=== PATIENT | female | born 1955 | race Caucasian/White ===

== ENCOUNTER 2016-11-16 05:36 | Inpatient (IN) | payer OTHER ==
[~2016-11-16] VITALS: Ht 172.7 cm; Wt 50.3 kg
[~2016-11-16 05:36] MED LIST: [UNRECOGNIZED DRUG - REMARK] PO
[2016-11-16] MEDS ORDERED: OXYCODONE/APAP 5-325 MG TABLET PO ONE (05:45)
[2016-11-16] MEDS ORDERED: TDAP DIPH,PERTUSS,TET VAC/PF 0.5 ML DISP.SYRIN IM ONE ×2 (05:45→05:59)
[2016-11-16] MEDS ORDERED: OXYCODONE/APAP 5-325 MG TABLET ONE (05:59)
[2016-11-16 07:13] LABS: BASOPHILS # (AUTO) 0.1 K/uL (0.0-8.0); BASOPHILS % (AUTO) 0.7 % (0.0-2.0); EOSINOPHILS % (AUTO) 0.2 % (0.0-7.0); HEMATOCRIT 41.8 % (37-47); HEMOGLOBIN 13.7 G/DL (12.0-16.0); LYMPHOCYTES # (AUTO) 1.1 K/UL (0.8-4.8); LYMPHOCYTES % (AUTO) 13.8 % (20.5-51.5); MEAN CORPUSCULAR HEMOGLOBIN 31.3 UUG (27.0-31.0); MEAN CORPUSCULAR HGB CONC 33 g/dL (32.0-37.0); MEAN CORPUSCULAR VOLUME 95.5 FL (81.0-99.0); MONOCYTES # (AUTO) 1.3 K/UL (0.1-1.30); MONOCYTES % (AUTO) 16.9 % (0.0-11.0); NEUTROPHILS # (AUTO) 5.3 K/UL (1.8-8.9); NEUTROPHILS % (AUTO) 68.4 % (38.5-71.5); PLATELET COUNT (AUTO) 105 K/UL (150-450); RED BLOOD CELL COUNT(AUTO) 4.38 MIL/UL (4.2-5.4); WHITE BLOOD COUNT (AUTO) 7.8 K/UL (4.0-11.2)
[2016-11-16 07:39] LABS: BILIRUBIN,TOTAL 2.2 mg/dL (0.2-1.0); CREATININE 0.7 mg/dL (0.6-1.3); POTASSIUM 3.9 mmol/L (3.5-5.1); TOTAL PROTEIN, SERUM 6.8 g/dL (6.4-8.2)
[2016-11-16 08:23] LABS: BAND % (MANUAL) 8 % (0-10); LYMPHOCYTES % (MANUAL) 9 % (20-40); MONOCYTES % (MANUAL) 14 % (2-10); NEUTROPHILS % (MANUAL) 69 % (42-75)
[2016-11-16] MEDS ORDERED: ACETAMINOPHEN 325 MG TABLET PO PRN (09:15)
[2016-11-16] MEDS ORDERED: ZOLPIDEM 5 MG TABLET PO PRN (09:15)
[2016-11-16] MEDS ORDERED: Z GUARD REMEDY PASTE 57 GM TUBE TOP PRN (09:15)
[2016-11-16] MEDS ORDERED: ONDANSETRON 4 MG/2 ML VIAL IV PRN (09:15)
[2016-11-16] MEDS ORDERED: HYDROCODONE/APAP 5-325MG TABLET PO PRN (09:15)
[2016-11-16] MEDS ORDERED: MORPHINE SULFATE 2 MG/1 ML DISP.SYRIN IV PRN (09:15)
[2016-11-16] MEDS ORDERED: MAGNESIUM HYDROXIDE 30 ML LIQUID UDC PO PRN (09:15)
[2016-11-16] MEDS: ENOXAPARIN SODIUM 40 MG/0.4 ML DISP.SYRIN SQ SCH (09:29)
[2016-11-16 09:38] VITALS: BP 124/90
[2016-11-16 11:04] VITALS: BP 115/84
[2016-11-16 15:06] VITALS: BP 122/86
[2016-11-16] MEDS: HYDROCODONE/APAP 10-325 MG TABLET PO PRN (20:08)
[2016-11-16 20:23] VITALS: BP 129/91
[2016-11-17 04:00] VITALS: BP 133/94
[2016-11-17] MEDS: PANTOPRAZOLE SODIUM 40 MG TABLET.DR PO SCH (06:03)
[2016-11-17 07:09] LABS: THYROID STIMULATING HORMONE 8.911 mIU/mL (0.358-3.740)
[2016-11-17 07:16] LABS: CREATININE 0.6 mg/dL (0.6-1.3); MAGNESIUM 1.6 mg/dL (1.8-2.4); PHOSPHOROUS 2.6 mg/dL (2.5-4.9); POTASSIUM 4.3 mmol/L (3.5-5.1)
[2016-11-17 07:18] LABS: *BLOOD, URINE 3+ (NEGATIVE); *CLARITY,URINE CLOUDY (CLEAR); *COLOR,URINE Orange (YELLOW); *KETONES,URINE 1+ (NEGATIVE); *PROTEIN,URINE 1+ (NEGATIVE); *UROBILINOGEN,URINE >=8.0 E.U./dl (NORMAL); LEUKOCYTE ESTERASE ,URINE 1+ (NEGATIVE); NITRITE, URINE NEGATIVE (NEGATIVE); PH,URINE 5.5 (5.0-8.0); UGLUCOSE NEGATIVE (NEGATIVE)
[2016-11-17 07:22] LABS: *BILIRUBIN,URIN 2+ (NEGATIVE)
[2016-11-17 07:28] LABS: BACTERIA,URINE FEW /HPF (NONE SEEN); RBC,URINE TNTC /HPF (0-3); SQUAMOUS EPITHELIAL CELL,UR MODERATE /HPF (NONE SEEN)
[2016-11-17 07:29] LABS: MUCUS,URINE MODERATE /LPF (0-FEW); WBC,URINE 50-80 /HPF (0-3)
[2016-11-17] MEDS ORDERED: POLYMYXIN B SULFATE 500,000 UNITS, BACITRACIN 50,000 UNITS, NORMAL SALINE 20 ML MC ONE ×3 (07:30)
[2016-11-17 07:37] LABS: EOSINOPHILS # (AUTO) 0.1 K/uL (0.0-0.7); EOSINOPHILS % (AUTO) 1.4 % (0.0-7.0); HEMATOCRIT 38.4 % (37-47); HEMOGLOBIN 12.6 G/DL (12.0-16.0); LYMPHOCYTES # (AUTO) 1.4 K/UL (0.8-4.8); LYMPHOCYTES % (AUTO) 19.4 % (20.5-51.5); MEAN CORPUSCULAR HEMOGLOBIN 31.4 UUG (27.0-31.0); MEAN CORPUSCULAR HGB CONC 33 g/dL (32.0-37.0); MEAN CORPUSCULAR VOLUME 95.6 FL (81.0-99.0); MONOCYTES % (AUTO) 13.7 % (0.0-11.0); NEUTROPHILS # (AUTO) 4.8 K/UL (1.8-8.9); NEUTROPHILS % (AUTO) 65.5 % (38.5-71.5); PLATELET COUNT (AUTO) 85 K/UL (150-450); RED BLOOD CELL COUNT(AUTO) 4.02 MIL/UL (4.2-5.4); WHITE BLOOD COUNT (AUTO) 7.3 K/UL (4.0-11.2)
[2016-11-17] MEDS ORDERED: BUPIVACAINE/EPI PF 0.25% 30 ML VIAL ONE (07:38)
[2016-11-17] MEDS ORDERED: BUPIVACAINE 0.25% 30 ML VIAL ONE (07:38)
[2016-11-17] MEDS ORDERED: IV LACTATED RINGERS SOLUTION 1,000 ML BAG IV ONE (07:48)
[2016-11-17] MEDS ORDERED: CEFAZOLIN 1 G VIAL MC ONE (07:48)
[2016-11-17] MEDS ORDERED: PROPOFOL 200 MG/20 ML BOTTLE IV ONE (07:48)
[2016-11-17] MEDS ORDERED: DEXAMETHASONE SOD PHOSPHATE 4 MG INJ IV ONE (07:48)
[2016-11-17] MEDS ORDERED: ONDANSETRON 4 MG/2 ML VIAL IV ONE (07:48)
[2016-11-17] MEDS ORDERED: LIDOCAINE-MPF 2% 5 ML VIAL MC ONE (07:48)
[2016-11-17] MEDS ORDERED: KETOROLAC TROMETHAMINE 30 MG INJ IM ONE (07:48)
[2016-11-17] MEDS ORDERED: DESFLURANE ANESTHESIA GAS 240 ML BOTTLE ONE ×2 (08:26)
[2016-11-17] MEDS: ENOXAPARIN SODIUM 40 MG/0.4 ML DISP.SYRIN SQ SCH (08:38)
[2016-11-17 08:47] LABS: BAND % (MANUAL) 6 % (0-10); EOSINOPHILS % (MANUAL) 2 % (0-8); LYMPHOCYTES % (MANUAL) 24 % (20-40); MONOCYTES % (MANUAL) 8 % (2-10); NEUTROPHILS % (MANUAL) 60 % (42-75)
[2016-11-17] MEDS ORDERED: ENOXAPARIN SODIUM 40 MG/0.4 ML DISP.SYRIN SQ SCH (09:00)
[2016-11-17] MEDS ORDERED: POTASSIUM CHLORIDE 20 MEQ in IV D5 1/2 NS 1000 ML 1,000 ML IV PRN (09:30)
[2016-11-17] MEDS ORDERED: CEFAZOLIN 50 ML IV ONE (09:35)
[2016-11-17] MEDS ORDERED: IV D5W-0.45% NS +20 KCL 1,000 ML IV ONE (10:01)
[2016-11-17 10:18] VITALS: BP 118/78
[2016-11-17] MEDS: MAGNESIUM SULFATE/D5W 100 ML IV SCH ×2 (10:25→11:25)
[2016-11-17 10:30] VITALS: BP 119/76
[2016-11-17 11:10] VITALS: BP 117/80
[2016-11-17] MEDS: CEFTRIAXONE 1 G in IV DEXTROSE 5% 50 ML IV SCH (13:52)
[2016-11-17 15:05] VITALS: BP 96/46
[2016-11-17 20:00] VITALS: BP 113/70
[2016-11-17] MEDS: HYDROCODONE/APAP 10-325 MG TABLET PO PRN (20:57)
[2016-11-18 05:00] VITALS: BP 121/80
[2016-11-18] MEDS: PANTOPRAZOLE SODIUM 40 MG TABLET.DR PO SCH (06:29)
[2016-11-18 06:42] LABS: CREATININE 0.6 mg/dL (0.6-1.3); MAGNESIUM 2.1 mg/dL (1.8-2.4); POTASSIUM 3.7 mmol/L (3.5-5.1)
[2016-11-18 12:07] VITALS: BP 127/93
[2016-11-18] MEDS ORDERED: HYDR-548 PO ×2 (14:20→20:27)
[2016-11-18] MEDS ORDERED: HYDR-3326 PO ×2 (14:20→20:27)
[2016-11-18] MEDS ORDERED: CEFT1PIG2 IV ×2 (14:20→20:27)
[2016-11-18] MEDS ORDERED: ACET325T53 PO (14:20)
[2016-11-18] MEDS: CEFTRIAXONE 1 G in IV DEXTROSE 5% 50 ML IV SCH (15:00)
[2016-11-18] MEDS ORDERED: ACET-2154 PO (20:27)
== END 2016-11-18 16:35 | DRG 504 ==
LOC: ER 05:38 → MED 07:55
PROC: 0QSL04Z Reposition Right Tarsal with Internal Fixation Device, Open Approach (ICD-10-PCS; principal; 2016-11-17 08:00)
DX: S92.001A Unspecified fracture of right calcaneus, initial encounter for closed fracture (principal); N39.0 Urinary tract infection, site not specified; W01.0XXA Fall on same level from slipping, tripping and stumbling without subsequent striking against object, initial encounter; Y93.01 Activity, walking, marching and hiking; Y92.89 Other specified places as the place of occurrence of the external cause; F17.210 Nicotine dependence, cigarettes, uncomplicated; B96.20 Unspecified Escherichia coli [E. coli] as the cause of diseases classified elsewhere; Z99.3 Dependence on wheelchair; I10 Essential (primary) hypertension; D69.6 Thrombocytopenia, unspecified; Z87.81 Personal history of (healed) traumatic fracture
CPT/HCPCS: 36415; 71010; 73590; 73630; 73650; 76000; 83735; 84100; 84443; 85025; 85610; 87077; 87086; 90715; 93005; 93307; 97001; 97530; A4663; C1713; J0690; J0696; J1100; J1650; J1885; J2405; J3475; J3480; J3490; J7060; J7120

== ENCOUNTER 2016-11-18 14:52 | Inpatient (IN) | payer OTHER ==
[~2016-11-18] VITALS: Ht 172.7 cm; Wt 62.6 kg
[~2016-11-18 14:52] MED LIST changes: +ACET325T53 PO; +CEFT1PIG2 IV; +HYDR-3326 PO; +HYDR-548 PO
[2016-11-18 19:32] VITALS: BP 111/76
[2016-11-18] MEDS ORDERED: HYDROCODONE/APAP 10-325 MG TABLET PO PRN (19:45)
[2016-11-18] MEDS ORDERED: HYDR-548 PO (20:27)
[2016-11-18] MEDS ORDERED: CEFT1PIG2 IV (20:27)
[2016-11-18] MEDS ORDERED: HYDR-3326 PO (20:27)
[2016-11-18] MEDS ORDERED: ACET-2154 PO (20:27)
[2016-11-18] MEDS ORDERED: ACETAMINOPHEN 325 MG TABLET PO PRN (20:45)
--- NOTE | 2016-11-18 21:08 | NUR ---
pt admitted at 1630 from second floor [facility]. report received from gwendolyn ROGERS. pt was brought in with the use of wheelchair. vital signs within normal limits. pt reported having bleeding on right foot but report said dont open it until Dr. Jimenez opens the dressing. pt reports having pain 9/10. pt states that she needs commode and assistance when moving. pt oriented to the room. loc x3 patient alert and oriented. obeys commands. will continue to monitor for complications and continue with medications ordered by dr Banks.
[2016-11-18] MEDS: CEFTRIAXONE 1 G in IV DEXTROSE 5% 50 ML IV SCH (21:51)
--- NOTE | 2016-11-19 06:11 | NUR ---
Patient alert and oriented and verbally able to let needs known. Did complain of pain on surgery site, medication was administered with relief. Patient slept well throughout the night, call light within reach, all needs attended to.
--- NOTE | 2016-11-19 07:07 | NUR ---
Patient received from shift production supervisor, resting comfortably in bed. No signs of acute distress noted, respirations even and unlabored on RA. Skin clean, dry, and intact. No verbalized needs noted at this time. Patient to go to therapy with OT. All safety precautions maintained. Transferred to gym safely with OT via wheelchair.
[2016-11-19 08:00] VITALS: BP 125/87
[2016-11-19] MEDS: HYDROCODONE/APAP 5-325MG TABLET PO PRN ×2 (13:02→21:28)
--- NOTE | 2016-11-19 16:03 | NUR ---
Senior Infrastructure Architect: SW met with patient at bedside to assess needs and provide support. Pt was admitted due to RT calcaneus Fx, and reported she was transferred from med/surg. Per pt, today was her first day of physical therapy and reported she did "horribly." She appeared fatigued during interview, however was pleasant and cooperative. Per pt, she has had a long hx of surgeries in the past, and reported that her "good ankle" is the reason for admission into acute rehab. Per pt, she has had issues with her left ankle in the past which caused her to fall 4 years ago, and has used a wheelchair since. Pt stated "I did horribly today" in regards to physical therapy, and appeared disappointed. She does demonstrate some sadness in regards to her loss in ambulation for her right ankle. Pt's then entered the room and shared further information. Pt has a strong support at home, however pt's is concerned about her return home. Per pt and , she will need assistance at home in order to transfer around for 6-12 weeks. SW discussed possible caregiving resources/in home sales consultant that could be provided upon discharge. Pt appeared sad, therefore SW encouraged pt to step out of her room. Pt agreed and reported her would be taking her out on her wheelchair for some "fresh air." SW provided supportive counseling to deal with patients depressive symptoms related to decline in functioning. SW provided linkage to resources (case management for HH). SW will continue to address issues of loss related to recent falls and hospitalization.
[2016-11-19 20:32] VITALS: BP 101/69
[2016-11-19] MEDS: CEFTRIAXONE 1 G in IV DEXTROSE 5% 50 ML IV SCH (20:42)
--- NOTE | 2016-11-20 06:16 | NUR ---
Patient alert and oriented and verbally able to let needs known. Slept intermittently throughout the night. Assistance provided while using the commode. Had c/o pain earlier in the shift and was relieved by medication. Patient has call light within reach, will continue to monitor
--- NOTE | 2016-11-20 07:07 | NUR ---
Patient received from shiftman, resting comfortably in bed. No signs of acute distress noted, respirations even and unlabored, on RA. VS WNL, no complaints of pain at this time. No other complications noted at this time. Patient to go to therapy with OT. Transferred safely via wheelchair to therapy room.
[2016-11-20 08:28] LABS: CREATININE 0.7 mg/dL (0.6-1.3); MAGNESIUM 1.8 mg/dL (1.8-2.4); POTASSIUM 4.9 mmol/L (3.5-5.1)
[2016-11-20 08:30] LABS: BASOPHILS % (AUTO) 0.7 % (0.0-2.0); EOSINOPHILS # (AUTO) 0.2 K/uL (0.0-0.7); EOSINOPHILS % (AUTO) 2.3 % (0.0-7.0); HEMATOCRIT 41.7 % (37-47); HEMOGLOBIN 13.2 G/DL (12.0-16.0); LYMPHOCYTES # (AUTO) 1.5 K/UL (0.8-4.8); LYMPHOCYTES % (AUTO) 22.3 % (20.5-51.5); MEAN CORPUSCULAR HEMOGLOBIN 30.2 UUG (27.0-31.0); MEAN CORPUSCULAR HGB CONC 32 g/dL (32.0-37.0); MEAN CORPUSCULAR VOLUME 95.8 FL (81.0-99.0); MONOCYTES # (AUTO) 0.8 K/UL (0.1-1.30); MONOCYTES % (AUTO) 11.3 % (0.0-11.0); NEUTROPHILS # (AUTO) 4.3 K/UL (1.8-8.9); NEUTROPHILS % (AUTO) 63.4 % (38.5-71.5); RED BLOOD CELL COUNT(AUTO) 4.35 MIL/UL (4.2-5.4); WHITE BLOOD COUNT (AUTO) 6.8 K/UL (4.0-11.2)
[2016-11-20 08:32] LABS: PLATELET COUNT (AUTO) 124 K/UL (150-450)
[2016-11-20 15:52] VITALS: BP 141/89
--- NOTE | 2016-11-20 20:00 | NUR ---
RECEIVED PATIENT AWAKE IN BED. A/O X4. C/O PAIN IN RIGHT ANKLE. DRESSING NOTED TO RIGHT ANKLE/FOOT, CLEAN, DRY AND INTACT. NO RESP. DISTRESS NOTED. VSS. HEPLOCK INTACT AND PATENT, NOTED TO RIGHT AC #20 GAUGE. CALL LIGHT IN REACH. ALL NEEDS ATTENDED. WILL CONTINUE TO MONITOR.
[2016-11-20 20:03] VITALS: BP 115/74
--- NOTE | 2016-11-20 20:15 | NUR ---
PATIENT GIVEN NORCO 1 TAB PO PRN FOR PAIN. WILL CONTINUE TO MONITOR.
[2016-11-20] MEDS: HYDROCODONE/APAP 5-325MG TABLET PO PRN (20:19)
[2016-11-20] MEDS: HEPARIN SODIUM,PORCINE 5,000 UNITS/ML VIAL SQ SCH (20:45)
[2016-11-20] MEDS: CEFTRIAXONE 1 G in IV DEXTROSE 5% 50 ML IV SCH (21:26)
--- NOTE | 2016-11-20 22:00 | NUR ---
PATIENT ASLEEP IN BED. NO S/S OF PAIN OR DISCOMFORT. NO RESP. DISTRESS NOTED. CALL LIGHT IN REACH. ALL NEEDS ATTENDED, WILL CONTINUE TO MONITOR.
--- NOTE | 2016-11-21 06:09 | NUR ---
PATIENT ASLEEP. NO RESP. DISTRESS NOTED. SLEPT WELL THROUGHOUT THE NIGHT. NO S/S OF PAIN OR DISCOMFORT. CALL LIGHT IN REACH. ALL NEEDS ATTENDED. WILL CONTINUE TO MONITOR.
[2016-11-21 08:18] VITALS: BP 142/98
[2016-11-21] MEDS: HEPARIN SODIUM,PORCINE 5,000 UNITS/ML VIAL SQ SCH (08:31)
[2016-11-21] MEDS ORDERED: CEPH-570 PO (12:46)
--- NOTE | 2016-11-21 14:05 | NUR ---
pt discharged at 1400. pt left with bedside commode and discharge instructions. pt was also given number to follow up with Dr willis for wound consult. pt left with and primary rn complex care. pt verbalizes understanding of instructions. pt had no falls during stay and discharge. vital signs stable. all belongings checked and signed. pt instructed by OT on how to move from bed to commode. reminded pt to call doctor. pt left on a wheelchair with .
== END 2016-11-21 14:15 | disposition home health service (06) | DRG 560 ==
PROVIDERS: ADMIT Physical Medicine & Rehabilitation Pain Medicine; ATTEND Physical Medicine & Rehabilitation Pain Medicine
DX: S92.001D Unspecified fracture of right calcaneus, subsequent encounter for fracture with routine healing (principal); N39.0 Urinary tract infection, site not specified; W19.XXXD Unspecified fall, subsequent encounter; Z98.890 Other specified postprocedural states; F17.200 Nicotine dependence, unspecified, uncomplicated; Z87.81 Personal history of (healed) traumatic fracture; E03.9 Hypothyroidism, unspecified; R53.1 Weakness
CPT/HCPCS: 36415; 83735; 85025; 92610; 97110; 97116; 97161; 97165; 97530; 97535; J0696; J1644; J7060

== ENCOUNTER 2019-09-06 09:06 | Emergency (ER) | payer OTHER ==
[~2019-09-06] VITALS: Ht 172.7 cm; Wt 58.5 kg
--- NOTE | 2019-09-06 09:13 | NUR ---
PT IS AOX3 IS FROM HOME ABLE TO SPEAK CLEAR AND COMPLETE SENTENCES Patient is AOx4, speaking in complete sentences, speech is clear. Patient is able to follow /comprehend directions. Gait is stable. No cardiovascular distress noted. Rate and rhythm are regular. No CP. No respiratory distress noted. Respirations even & unlabored with symmetrical chest rise. No adventitious sounds noted. Chief complaint: LOWER EXTREMITY PAIN Patient denies Fever/Chills. No recent travel. No pertinent medical history/NKDA. - ETOH / -recreational drug use/ NONSMOKER. MONITORED ACCORDINGLY FALL PREC NOTED
--- NOTE | 2019-09-06 09:35 | NUR ---
RADIOLOGY AT BEDSIDE
--- NOTE | 2019-09-06 10:13 | NUR ---
PT ABLE TO TOLERATE SUPPORTIVE NAN WRAP TO R KNEE
--- NOTE | 2019-09-06 10:15 | NUR ---
PT REFUSED PAIN MEDS AT THIS TIME
--- NOTE | 2019-09-06 10:29 | NUR ---
Patient discharged to home in stable conditon. Written and verbal after care instructions given. Patient verbalizes understanding of instructions. DC VIA WHEELCHAIR WILL DRIVE ACC BY CAREGIVER
[2019-09-06 10:31] VITALS: BP 143/95
== END 2019-09-06 10:31 | disposition home or self-care (01) ==
LOC: ER 09:06
DX: S89.91XA Unspecified injury of right lower leg, initial encounter (principal); M25.461 Effusion, right knee; F17.210 Nicotine dependence, cigarettes, uncomplicated; Z74.09 Other reduced mobility; M85.861 Other specified disorders of bone density and structure, right lower leg; Z79.899 Other long term (current) drug therapy; X50.1XXA Overexertion from prolonged static or awkward postures, initial encounter; Y93.89 Activity, other specified; Y92.89 Other specified places as the place of occurrence of the external cause; Y99.8 Other external cause status
CPT/HCPCS: 73590; A4663

== ENCOUNTER 2020-08-20 07:13 | Inpatient (IN) | payer OTHER ==
[~2020-08-20] VITALS: Ht 172.7 cm; Wt 63.5 kg
[~2020-08-20 07:13] MED LIST changes: +ACET-2154 PO; +CEPH-570 PO; +HYDR-4354 PO; -HYDR-548 PO; -[UNRECOGNIZED DRUG - REMARK] PO
--- NOTE | 2020-08-20 07:23 | NUR ---
PT IS IN ROOM #1A. DR SHARIF EVALUATED THE PT.
[2020-08-20] MEDS ORDERED: IV NORMAL SALINE 1000 ML BAG IV ONE (07:30)
[2020-08-20] MEDS ORDERED: HYDROMORPHONE 1 MG/1 ML DISP.SYRIN IV ONE ×2 (07:30→08:45)
[2020-08-20] MEDS ORDERED: ONDANSETRON 4 MG/2 ML VIAL IV ONE (07:30)
[2020-08-20] MEDS ORDERED: HYDROMORPHONE 1 MG/1 ML DISP.SYRIN ONE ×3 (07:34→09:05)
[2020-08-20] MEDS ORDERED: ONDANSETRON 4 MG/2 ML VIAL ONE (07:58)
[2020-08-20 08:02] LABS: BASOPHILS % (AUTO) 0.7 % (0.0-2.0); EOSINOPHILS % (AUTO) 0.3 % (0.0-7.0); HEMOGLOBIN 13.2 g/dL (10.9-14.3); LYMPHOCYTES # (AUTO) 1.1 K/uL (20.0-40.0); LYMPHOCYTES % (AUTO) 14.5 % (20.5-51.5); MEAN CORPUSCULAR HEMOGLOBIN 32.7 uug (24.7-32.8); MEAN CORPUSCULAR HGB CONC 33 g/dL (32.3-35.6); MEAN CORPUSCULAR VOLUME 99.2 fL (75.5-95.3); MONOCYTES # (AUTO) 0.9 K/uL (2.0-10.0); MONOCYTES % (AUTO) 12.2 % (0.0-11.0); NEUTROPHILS # (AUTO) 5.5 K/uL (1.8-8.9); NEUTROPHILS % (AUTO) 72.3 % (38.5-71.5); PLATELET COUNT (AUTO) 111 K/uL (179-408); RED BLOOD CELL COUNT(AUTO) 4.04 MIL/uL (3.63-4.92); WHITE BLOOD COUNT (AUTO) 7.6 K/uL (3.8-11.8)
[2020-08-20 08:09] LABS: CREATININE 0.8 mg/dL (0.6-1.3)
[2020-08-20 08:15] LABS: BILIRUBIN,DIRECT 0.4 mg/dL (0.0-0.2); TOTAL PROTEIN, SERUM 7.1 g/dL (6.4-8.2)
[2020-08-20] MEDS ORDERED: HYDROCODONE/APAP 5-325MG TABLET PO PRN (10:30)
[2020-08-20] MEDS ORDERED: ONDANSETRON 4 MG/2 ML VIAL IV PRN (10:30)
[2020-08-20] MEDS ORDERED: Z GUARD REMEDY PASTE 57 GM TUBE TOP PRN (10:30)
[2020-08-20] MEDS ORDERED: MAGNESIUM HYDROXIDE 30 ML LIQUID UDC PO PRN (10:30)
[2020-08-20] MEDS ORDERED: MORPHINE SULFATE 2 MG/1 ML DISP.SYRIN IV PRN (10:30)
[2020-08-20] MEDS ORDERED: HYDR-4209 PO (10:32)
[2020-08-20 12:00] VITALS: BP 141/85
--- NOTE | 2020-08-20 12:15 | NUR ---
PATIENT RECEIVED 65Y OLD FEMALE FROM EMERGENCY ROOM BY AMINAH TO ROOM 304 WITH DX OF LEFT TIBIA PLATE FX. PLACED INTO BED FIXED AND MADE COMFORTABLE. ORIENTED TO ROOM AND HOSPITAL PROTOCOLS. PATIENT IS ALERT AND ORIENTED ON RA WITH NO SOB AT THIS TIME. DIET ORDER NOTED FROM DR. WOOD. LUNCH SERVED AND PATIENT IS EATING AT THIS TIME. WILL CONTINUE WITH THE ADMISSION PROTOCOL.
--- NOTE | 2020-08-20 12:45 | NUR ---
PT WAS TRANSFERED TO ROOM #304. REPORT WAS GIVEN TO RN
--- NOTE | 2020-08-20 13:30 | NUR ---
CALL RECEIVED FROM DR SEN STATED WILL DO ORIF OF THE LEFT TIBIA FRACTURE STATED UNABLE TO COME HERE TODAY TO TALK TO PATIENT BUT WILL YAZ;K TO THE PATIENT IN THE MORNING BEFORE HER SURGERY PATIENT NOTIFIED SHE WILL ALSO BE NPO AFTER MIDNIGHT.
[2020-08-20 16:00] VITALS: BP 141/95
--- NOTE | 2020-08-20 16:30 | NUR ---
DR SEN HERE TO SEE PATIENT AND EXPLAIN TO HER THE SURGERY PLAN FOR TOMORROW AND CONSCENT OBTAINED.
--- NOTE | 2020-08-20 17:20 | NUR ---
CALLED [facility] AND SPOKE WITH DR WOOD REGARDING PT'S DNR/DNI STATUS AND PER HOSPITAL PROTOCOL, DNR SHOULD BE SUSPENDED FOR 24 HOURS AFTER SURGERY. NEEDED HIS OKAY AND HE STATED TO CONTINUE WITH HOSPITAL PROTOCOL. PT NOTIFIED OF THE PROTOCOL TO REVERSE DNR DURING AND AFTER SURGERY FOR 24 HOURS. PT EXPRESSED UNDERSTANDING AND STATED IT WAS OKAY.
--- NOTE | 2020-08-20 17:41 | NUR ---
PRE-OP TEACHING PT EDUCATED THAT SHE WILL BE NOTHING BY MOUTH AFTER MIDNIGHT IN PREPARATION FOR HER SCHEDULED SURGERY TOMORROW AT 0800. WILL BE PICKED UP AT ABOUT 0730 IN THE MORNING AND SHE EXPRESSED UNDERSTANDING.
--- NOTE | 2020-08-20 20:06 | NUR ---
rounds made patient AAOX3 watching tv ,as per INDUCTION HEATING EQUIPMENT SETTER she took the temp axillary 98.8 ,via the mouth orally 100.1.given prn Tylenol for low grade temperature and will continue to monitor temp and levels of comfort .checked left leg with long leg brace pulses + DP ,good cms and able to feel sensation .
[2020-08-20] MEDS: Z GUARD REMEDY PASTE 57 GM TUBE TOP SCH (20:15)
[2020-08-20] MEDS: ACETAMINOPHEN 325 MG TABLET PO PRN (20:16)
[2020-08-20 20:30] VITALS: BP 130/83
[2020-08-21] VITALS (7 sets, daily range): BP systolic 110–131; BP diastolic 44–79
--- NOTE | 2020-08-21 | NUR ---
informed patient shes NOW NPO post midnight for preop for surgery .patient verbalized understanding .
--- NOTE | 2020-08-21 05:46 | NUR ---
morning care done by GOVERNMENT AFFAIRS DIRECTOR assisted at b/s patient incontinent of urine changed soiled diaper . turned and reposition . no bm noted .voided 2x in shift.
[2020-08-21] MEDS ORDERED: BUPIVACAINE 0.25% 30 ML VIAL ONE (07:11)
[2020-08-21] MEDS ORDERED: VANCOMYCIN 1000 MG VIAL ONE (07:13)
[2020-08-21] MEDS ORDERED: POLYMYXIN B SULFATE 500,000 UNITS, BACITRACIN 50,000 UNITS, NORMAL SALINE 20 ML MC ONE ×6 (07:15→07:30)
[2020-08-21 07:19] LABS: BASOPHILS % (AUTO) 0.5 % (0.0-2.0); EOSINOPHILS # (AUTO) 0.1 K/uL (0.0-0.7); EOSINOPHILS % (AUTO) 1.3 % (0.0-7.0); HEMATOCRIT 35.2 % (31.2-41.9); HEMOGLOBIN 11.4 g/dL (10.9-14.3); LYMPHOCYTES # (AUTO) 1.4 K/uL (20.0-40.0); LYMPHOCYTES % (AUTO) 22.6 % (20.5-51.5); MEAN CORPUSCULAR HEMOGLOBIN 32.6 uug (24.7-32.8); MEAN CORPUSCULAR HGB CONC 33 g/dL (32.3-35.6); MEAN CORPUSCULAR VOLUME 100.4 fL (75.5-95.3); MONOCYTES # (AUTO) 0.9 K/uL (2.0-10.0); MONOCYTES % (AUTO) 15.2 % (0.0-11.0); NEUTROPHILS # (AUTO) 3.7 K/uL (1.8-8.9); NEUTROPHILS % (AUTO) 60.4 % (38.5-71.5); PLATELET COUNT (AUTO) 95 K/uL (179-408); WHITE BLOOD COUNT (AUTO) 6.1 K/uL (3.8-11.8)
--- NOTE | 2020-08-21 07:40 | NUR ---
Patient is off the floor for surgery. will continue to monitor when back on floor.
[2020-08-21 07:54] LABS: BILIRUBIN,TOTAL 1.1 mg/dL (0.2-1.0); CREATININE 0.7 mg/dL (0.6-1.3); MAGNESIUM 1.5 mg/dL (1.8-2.4); POTASSIUM 3.5 mmol/L (3.5-5.1); TOTAL PROTEIN, SERUM 5.8 g/dL (6.4-8.2)
[2020-08-21] MEDS ORDERED: MIDAZOLAM HCL 2 MG/2 ML VIAL ONE (08:06)
[2020-08-21] MEDS ORDERED: FENTANYL CITRATE 100 MCG/2 ML AMPUL ONE (08:06)
[2020-08-21] MEDS ORDERED: ROCURONIUM BROMIDE 50 MG/5 ML VIAL ONE (08:06)
[2020-08-21] MEDS: Z GUARD REMEDY PASTE 57 GM TUBE TOP SCH ×2 (11:10→21:06)
--- NOTE | 2020-08-21 11:10 | NUR ---
Received patient from Surgery nurse Analisa. Patient is awake alert and oriented times 4. No sign of distress noted. Patient is talking and aware of surroundings. She is asking to speak with surgeon about her procedure. Orders are to resume diet and start infusion of fluids D5 1/2 NS with 20 KCL at 75 mls/hr. Safety precautions in place. Will continue to monitor.
[2020-08-21] MEDS ORDERED: MORPHINE SULFATE 2 MG/1 ML DISP.SYRIN IV PRN (11:15)
[2020-08-21] MEDS: IV D5W-0.45% NS +20 KCL 1,000 ML IV PRN (11:20)
[2020-08-21] MEDS ORDERED: ONDANSETRON 4 MG/2 ML VIAL IV ONE (12:02)
[2020-08-21] MEDS ORDERED: IRR STERIL WATER FOR IRR 1000 ML BOTTLE IR ONE (12:02)
[2020-08-21] MEDS ORDERED: KETOROLAC TROMETHAMINE 30 MG INJ IM ONE (12:02)
[2020-08-21] MEDS ORDERED: CEFAZOLIN 1 G VIAL IM ONE (12:02)
[2020-08-21] MEDS ORDERED: IV LACTATED RINGERS SOLUTION 1,000 ML BAG IV ONE (12:02)
[2020-08-21] MEDS ORDERED: PROPOFOL 200 MG/20 ML BOTTLE IV ONE (12:02)
[2020-08-21] MEDS ORDERED: IV NORMAL SALINE 1000 ML BAG IV ONE (12:02)
[2020-08-21] MEDS ORDERED: DEXAMETHASONE SOD PHOSPHATE 4 MG INJ IV ONE (12:02)
--- NOTE | 2020-08-21 12:07 | NUR ---
WOUND CARE CONSULT: PT PRESENTS WITH LEFT LOWER EXTREMITY ORTHOPEDIC SURGICAL DRESSING WHICH COVERS FOOT AND HEEL. DRESSING IS DRY AND INTACT. HEELS ARE FLOATED. PER ADMISSION PHOTO, THERE IS ULCER TO LEFT HEEL. RT HEEL SCAR NOTED UPON ASSESSMENT (PRESENT ON ADMISSION). RECOMMEND FOLLOW UP FOR LEFT HEEL WOUND. PT STATES " I DO NOT GO TO DOCTORS." PT REFUSED TO TURN FOR FULL SKIN ASSESSMENT AND STATES "MY BOTTOM IS FINE". RECOMMENDATIONS MADE FOR SKIN PROTECTION. DISCUSSED WITH NURSING STAFF AND CHARTING CLERK. IN AGREEMENT WITH PLAN OF CARE.
[2020-08-21 15:01] LABS: EOSINOPHILS % (MANUAL) 1 % (0-8); LYMPHOCYTES % (MANUAL) 25 % (20-40); MONOCYTES % (MANUAL) 14 % (2-10); NEUTROPHILS % (MANUAL) 60 % (42-75)
[2020-08-21] MEDS: CEFAZOLIN 50 ML IV SCH ×2 (15:18→21:06)
[2020-08-21] MEDS: MAGNESIUM SULFATE/D5W 100 ML IV SCH ×2 (15:58→16:54)
--- NOTE | 2020-08-21 18:19 | NUR ---
Patient left resting in bed. No sign of distress noted. Gave all medications as ordered. No complaints on pain. No SOB. Cap refill are within normal limits. Patient is able to move her toes. Safety precautions are in place. Will endorse to oncoming nurse.
--- NOTE | 2020-08-21 19:30 | NUR ---
RECEIVED PT AWAKE, ALERT AND ORIENTEDX4. PT IN NO ACUTE DISTRESS. IV INTACT. SAFETY AND COMFORT PROVIDED. WILL CONTINUE TO MONITOR.
--- NOTE | 2020-08-21 22:45 | NUR ---
AT 2108H MORPHINE 2MG GIVEN FOR PAIN. PT TOLERATED IT WELL. AFTER AN HOUR PT STATED SHE FELT RELIEVED.SAFETY AND COMFORT PROVIDED. WILL CONTINUE TO MONITOR.
[2020-08-22 04:00] VITALS: BP 119/72
[2020-08-22] MEDS: IV D5W-0.45% NS +20 KCL 1,000 ML IV PRN ×2 (06:32→18:35)
--- NOTE | 2020-08-22 06:33 | NUR ---
PT SLEPT INTERMITTENTLY. PT IN NO ACUTE DISTRESS. IV INTACT. PRESCRIBED MEDICATION GIVEN AND PT TOLERATED IT WELL. SAFETY AND COMFORT PROVIDED. WILL ENDORSE TO INCOMING NURSE FOR CONTINUITY OF CARE
[2020-08-22 07:11] LABS: CREATININE 0.8 mg/dL (0.6-1.3); POTASSIUM 4.6 mmol/L (3.5-5.1)
[2020-08-22] MEDS: Z GUARD REMEDY PASTE 57 GM TUBE TOP SCH ×2 (09:21→20:14)
[2020-08-22 12:00] VITALS: BP 108/75
[2020-08-22 16:00] VITALS: BP 118/71
[2020-08-22] MEDS: ACETAMINOPHEN 325 MG TABLET PO PRN (16:15)
--- NOTE | 2020-08-22 16:28 | NUR ---
LEAD RETAIL SALES ASSOCIATE REPORTS TEMPERATURE OF 102.0, RECHECKED - TEMP 102.2. GIVEN TYLENOL PRN AND PLACED ICE PACK ON LOWER EXTREMITY. WILL CONTINUE TO MONITOR.
--- NOTE | 2020-08-22 17:52 | NUR ---
TEMPERATURE 99.2 -NO S/S OF DISTRESS OR SOB NOTED
[2020-08-22 20:00] VITALS: BP 121/84
--- NOTE | 2020-08-22 20:00 | NUR ---
Received patient in bed AAOx4. No s/s of acute distress noted at this time. Patient on RA denies SOB. C/o pain in left leg, will administer medication per order. Left leg immobilizer in place. Call light within reach with bed in locked position and alarm on. Safety measures in place.
[2020-08-22] MEDS: HYDROCODONE/APAP 10-325 MG TABLET PO PRN (20:14)
[2020-08-23 05:09] VITALS: BP 132/84
[2020-08-23] MEDS: IV D5W-0.45% NS +20 KCL 1,000 ML IV PRN ×2 (07:20→21:50)
[2020-08-23] MEDS: Z GUARD REMEDY PASTE 57 GM TUBE TOP SCH ×2 (09:07→20:19)
[2020-08-23] MEDS: HYDROCODONE/APAP 10-325 MG TABLET PO PRN ×2 (09:56→20:19)
--- NOTE | 2020-08-23 10:41 | NUR ---
WOUND CARE CONSULT: PT PRESENTS WITH LEFT HEEL WOUND AND RT 5TH TOE DRY ESCHAR, PRESENT ON ADMISSION. RECOMMEND DPM CONSULT. DR ROMERO NOTIFIED. RECOMMENDATIONS MADE FOR SKIN PROTECTION. DISCUSSED WITH NURSING STAFF. IN AGREEMENT WITH PLAN OF CARE. Addendum: 08/23/20 at 1045 by ZACH SCHULTE RN Amended: Links added.
--- NOTE | 2020-08-23 10:45 | NUR ---
pt seen by wound care nurse new orders received noted and carried out
--- NOTE | 2020-08-23 11:50 | NUR ---
pt seen by dr matson wound debridement done
[2020-08-23 12:00] VITALS: BP 126/81
--- NOTE | 2020-08-23 15:00 | NUR ---
Program Planner Consultation: 2:00pm: Program Planner consultation requested for this patient. Reason for consultation is fall at home, with fracture, and heel ulcer. Patient is a 65 year old female, alert, oriented x 4, receptive to speaking with this SW. Patient reports living at home with her , and 24 hours caregiver. Patient reports that she has been wheelchair bound for several years, has had a history of multiple falls in the past, fracture of both ankles. Patient reports that she was trying to transfer from her wheelchair to the bed, when she fell. Patient stated that her caregiver was present during the transfer, but she could not recall exactly what the cause for the fall was. Patient states that the fall resulted in the fracture of her tibia. Patient states that she also has a quality assurance assessor, who assists with some of the IADLs. Patient expressed being frustrated at times with her caregiver, stating that sometimes I have to repeat myself several times in order for a task to be done, but also stated being content with the caregivers that she currently has (patient has 2 caregivers, one for Wednesday-Wednesday, and one on the weekend). SW explored patients need for additional caregiver resources and patient stated that she was fine working with the ones she currently has. Discharge plans were discussed, and patient expressed wanting to return home after hospitalization and physical therapy. SW stated that SW would work with case management to assess patients needs for supportive services closer to time of discharge, and patient expressed agreement. Patient was cooperative with answering this SWs questions, but patients affect appeared to be blunted at times, and patient was guarded with some of her responses. Due to patients level of care needs, hx of falls, and patient having a recent fall with injury, along with a foot ulcer, this SW will make an APS report. SW will remain available to the patient, as needed.
--- NOTE | 2020-08-23 15:34 | NUR ---
Due to hx of falls with injury, current fall with injury, heel ulcer, and patient being wheelchair bound, this SW made an APS report. APS report # [id number].
[2020-08-23 15:40] VITALS: BP 104/71
[2020-08-23 20:03] VITALS: BP 109/71
[2020-08-24 04:03] VITALS: BP 129/79
[2020-08-24] MEDS: Z GUARD REMEDY PASTE 57 GM TUBE TOP SCH (07:53)
[2020-08-24 12:05] VITALS: BP 132/81
--- NOTE | 2020-08-24 14:44 | NUR ---
dc orders received noted and carried out.dc instruction and education given to the pt .dc heplock per md orders,dc pt to aru via bed in stable condition
== END 2020-08-24 14:49 | DRG 464 ==
LOC: ER 07:13 → MEDSURG3 10:33
PROVIDERS: ADMIT Internal Medicine; ATTEND Internal Medicine
PROC: 0QSH04Z Reposition Left Tibia with Internal Fixation Device, Open Approach (ICD-10-PCS; principal; 2020-08-21)
PROC: 0QRH0KZ Replacement of Left Tibia with Nonautologous Tissue Substitute, Open Approach (ICD-10-PCS; 2020-08-21)
PROC: 0JBQ0ZZ Excision of Right Foot Subcutaneous Tissue and Fascia, Open Approach (ICD-10-PCS; 2020-08-23)
PROC: 0JBR0ZZ Excision of Left Foot Subcutaneous Tissue and Fascia, Open Approach (ICD-10-PCS; 2020-08-23)
DX: M80.062A Age-related osteoporosis with current pathological fracture, left lower leg, initial encounter for fracture (principal); E87.1 Hypo-osmolality and hyponatremia; Z66 Do not resuscitate; F17.210 Nicotine dependence, cigarettes, uncomplicated; D69.6 Thrombocytopenia, unspecified; M19.90 Unspecified osteoarthritis, unspecified site; Z20.822 Contact with and (suspected) exposure to COVID-19; G62.9 Polyneuropathy, unspecified; L97.529 Non-pressure chronic ulcer of other part of left foot with unspecified severity; L97.519 Non-pressure chronic ulcer of other part of right foot with unspecified severity; W18.30XA Fall on same level, unspecified, initial encounter; Y93.9 Activity, unspecified; Y92.009 Unspecified place in unspecified non-institutional (private) residence as the place of occurrence of the external cause; Z99.3 Dependence on wheelchair; M89.562 Osteolysis, left lower leg
CPT/HCPCS: 36415; 70030-TC; 71045; 73562; 73590; 73610; 73630; 73700; 83690; 83735; 84100; 85025; 85730; 86850; 86900; 86901; 93005; A4217; A4649; A4663; C1713; C713; G0378; J0690; J1100; J1170; J1885; J2250; J2270; J2405; J3010; J3370; J3475; J3490; J7030; J7120

== ENCOUNTER 2020-08-24 13:59 | Inpatient (IN) | payer OTHER ==
[~2020-08-24] VITALS: Ht 172.7 cm; Wt 63.5 kg
[~2020-08-24 13:59] MED LIST changes: -ACET-2154 PO; -CEFT1PIG2 IV; -CEPH-570 PO
--- NOTE | 2020-08-24 16:24 | NUR ---
pt received to room 304 for s/p tibial fx .pt is axox4.vs are stable call light with in reach md called for admission ordes
[2020-08-24 17:08] VITALS: BP 160/98
--- NOTE | 2020-08-24 19:00 | NUR ---
recd pt in bed, alert,oriented x4, no complaints presented, needs attended to, kept dry and clean ,.
[2020-08-24 20:05] VITALS: BP 110/69
[2020-08-24] MEDS ORDERED: ACETAMINOPHEN 325 MG TABLET PO PRN (20:45)
[2020-08-24] MEDS ORDERED: HYDROCODONE/APAP 5-325MG TABLET PO PRN (20:45)
[2020-08-24] MEDS ORDERED: ENOXAPARIN SODIUM 40 MG/0.4 ML DISP.SYRIN SQ SCH (21:00)
[2020-08-24] MEDS ORDERED: NALOXONE HCL 0.4 MG/ML AMPUL IV PRN (23:30)
[2020-08-24] MEDS: OXYCODONE HCL 10 MG TAB.SR.12H PO SCH (23:30)
[2020-08-25] VITALS (7 sets, daily range): BP systolic 116–150; BP diastolic 57–93
--- NOTE | 2020-08-25 | NUR ---
slept intermittently,incontinent of both bowels and bladder.
[2020-08-25] MEDS: OXYCODONE HCL 10 MG TAB.SR.12H PO SCH ×3 (05:25→22:00)
--- NOTE | 2020-08-25 06:37 | NUR ---
HAD A QUIET NOC, ENDORSED TO AM NURSE IN FAIR CONDITION.
[2020-08-25] MEDS: AMLODIPINE 5 MG TABLET PO SCH (09:37)
[2020-08-25] MEDS: HYDROCODONE/APAP 10-325 MG TABLET PO PRN (21:08)
[2020-08-25] MEDS: ENOXAPARIN SODIUM 40 MG/0.4 ML DISP.SYRIN SQ SCH (21:29)
[2020-08-26 04:34] VITALS: BP 127/78
[2020-08-26] MEDS: OXYCODONE HCL 10 MG TAB.SR.12H PO SCH ×3 (06:00→21:09)
--- NOTE | 2020-08-26 06:39 | NUR ---
End of Shift: Patient is AOx4, VSS, on RA sating at 98%. Left heel with full thickness loss noted dressing intact. No s/s of acute distress. Medication given as ordered and tolerated well. Patient kept comfortable and all needs met. Fall precautions in place, will endorse to the AM shift nurse.
[2020-08-26 07:30] VITALS: BP 108/42
[2020-08-26] MEDS: AMLODIPINE 5 MG TABLET PO SCH ×2 (07:51→09:07)
--- NOTE | 2020-08-26 12:35 | NUR ---
Received pt mid shift in bed having lunch. on room air. No S/S of acute distress. no complaints. safety measures in place, call light in reach. Will continue to monitor
[2020-08-26 15:44] VITALS: BP 102/78
[2020-08-26] MEDS: HYDROCODONE/APAP 10-325 MG TABLET PO PRN (17:20)
--- NOTE | 2020-08-26 18:39 | NUR ---
EOSR pt in bed resting and watching tv. On room air and saturating at 97%. A&Ox4 able to make needs known. No S/S of acute distress noted. All meds given as ordered, all needs are met. Left heel dressing changed as ordered. Bed in lowest position, call light in reach, safety measures in place. Will endorse to oncoming nurse
[2020-08-26 20:03] VITALS: BP 108/70
[2020-08-26] MEDS: ENOXAPARIN SODIUM 40 MG/0.4 ML DISP.SYRIN SQ SCH (20:50)
--- NOTE | 2020-08-26 21:25 | NUR ---
Resting in bed watching TV Needs attended. VSS. Fall precautions maintained. Admitted for S/P left tibia ORIF. Left tibia dressing intact with cast, good circulation, (+) pulses. On pain management. Patient been refusing oxycontin 10 mg scheduled, she said she prefers [place] instead. Incontinent of bowel and bladder. Kept clean and dry. No BM noted this shift. Will monitor patient.
--- NOTE | 2020-08-27 | NUR ---
RECEIVED REPORT FROM RN. PATIENT ASLEEP IN BED. NO S/S OF PAIN OR DISCOMFORT. NO FACIAL GRIMACE NOTED. CALL LIGHT IN REACH.A LL NEEDS ATTENDED. WILL CONTINUE TO MONITOR AND ASSESS.
[2020-08-27 04:03] VITALS: BP 114/69
[2020-08-27] MEDS: OXYCODONE HCL 10 MG TAB.SR.12H PO SCH ×3 (05:40→21:09)
--- NOTE | 2020-08-27 06:16 | NUR ---
PATIENT AWAKE IN BED. REFUSED 0600 ROUTINE OXYCONTIN. VS WNL. DENIES PAIN AT THIS TIME. ALL NEEDS ATTENDED, CALL LIGHT IN REACH. WILL CONTINUE TO MONITOR AND ASSESS.
[2020-08-27 07:30] VITALS: BP 141/83
--- NOTE | 2020-08-27 08:08 | NUR ---
Awake, alert, oriented x 4. LLE with dressing clean and dry supported with immobilizer. Pain 09/28, discussed pain management but refused pain medicine at this time and routine Oxycontin, she prefers to take [place] only at night.
[2020-08-27] MEDS: AMLODIPINE 5 MG TABLET PO SCH (08:51)
[2020-08-27 15:59] VITALS: BP 106/66
[2020-08-27] MEDS: THERAHONEY GEL 1.5 OZ TUBE TOP SCH (16:44)
--- NOTE | 2020-08-27 16:45 | NUR ---
Wound care done to left heel and right fifth toe as ordered, off loaded.
[2020-08-27] MEDS: HYDROCODONE/APAP 10-325 MG TABLET PO PRN (18:16)
[2020-08-27 20:04] VITALS: BP 110/70
[2020-08-27] MEDS: ENOXAPARIN SODIUM 40 MG/0.4 ML DISP.SYRIN SQ SCH (20:48)
--- NOTE | 2020-08-27 21:33 | NUR ---
Resting in bed. AAOx4 Needs attended. Left knee dressing clean dry and intact with knee immobilizer. Left heel dressing clean dry and intact. On pain management. Denies any pain at this time. Will monitor patient. No acute distress noted. Patient on scheduled oxycontin, patient been refusing to take it, she says she is okay with the [place]. Fall precaution maintained. Siderails up for safety. Call sheets within reach.
[2020-08-28 04:00] VITALS: BP 133/73
[2020-08-28] MEDS: OXYCODONE HCL 10 MG TAB.SR.12H PO SCH ×3 (06:00→22:00)
--- NOTE | 2020-08-28 06:51 | NUR ---
End of shift notes: slept well most of the shift. Needs attended. VSS. Incontinent of bowel and bladder. No BM noted this shift. Refused 6am Oxycontin. Will monitor patient.
[2020-08-28 06:57] LABS: BASOPHILS % (AUTO) 0.4 % (0.0-2.0); EOSINOPHILS # (AUTO) 0.1 K/uL (0.0-0.7); EOSINOPHILS % (AUTO) 1.2 % (0.0-7.0); HEMATOCRIT 30.7 % (31.2-41.9); HEMOGLOBIN 9.9 g/dL (10.9-14.3); LYMPHOCYTES # (AUTO) 1.7 K/uL (20.0-40.0); LYMPHOCYTES % (AUTO) 30.8 % (20.5-51.5); MEAN CORPUSCULAR HEMOGLOBIN 32.5 uug (24.7-32.8); MEAN CORPUSCULAR HGB CONC 32 g/dL (32.3-35.6); MEAN CORPUSCULAR VOLUME 100.4 fL (75.5-95.3); MONOCYTES % (AUTO) 17.3 % (0.0-11.0); NEUTROPHILS # (AUTO) 2.8 K/uL (1.8-8.9); NEUTROPHILS % (AUTO) 50.3 % (38.5-71.5); PLATELET COUNT (AUTO) 167 K/uL (179-408); RED BLOOD CELL COUNT(AUTO) 3.06 MIL/uL (3.63-4.92); WHITE BLOOD COUNT (AUTO) 5.6 K/uL (3.8-11.8)
[2020-08-28 07:42] VITALS: BP 103/72
[2020-08-28 07:44] LABS: THYROID STIMULATING HORMONE 8.041 mIU/mL (0.358-3.740)
[2020-08-28 07:58] LABS: BILIRUBIN,TOTAL 0.2 mg/dL (0.2-1.0); CREATININE 0.6 mg/dL (0.6-1.3); MAGNESIUM 1.6 mg/dL (1.8-2.4); PHOSPHOROUS 4.3 mg/dL (2.5-4.9); POTASSIUM 4.6 mmol/L (3.5-5.1); TOTAL PROTEIN, SERUM 5.7 g/dL (6.4-8.2)
[2020-08-28] MEDS ORDERED: THERAHONEY GEL 1.5 OZ TUBE TOP SCH (09:00)
[2020-08-28] MEDS: AMLODIPINE 5 MG TABLET PO SCH (09:00)
[2020-08-28] MEDS ORDERED: MAGNESIUM OXIDE 400 MG TABLET PO ONE (09:15)
[2020-08-28] MEDS: THERAHONEY GEL 1.5 OZ TUBE TOP SCH (09:58)
[2020-08-28] MEDS: CYANOCOBALAMIN 1000 MCG/ML VIAL IM SCH (12:42)
[2020-08-28 14:25] LABS: NEUTROPHILS % (MANUAL) 51 % (42-75)
[2020-08-28 14:26] LABS: BAND % (MANUAL) 1 % (0-10); EOSINOPHILS % (MANUAL) 1 % (0-8); LYMPHOCYTES % (MANUAL) 32 % (20-40); MONOCYTES % (MANUAL) 15 % (2-10)
--- NOTE | 2020-08-28 15:08 | NUR ---
AZRA received a call from APS AZRA Wood [phone] in regards to an APS report this AZRA had made last week. AZRA called Nina back, but Nina was not available. AZRA left a voicemail message, asking for a call back.
[2020-08-28 15:48] VITALS: BP 111/64
--- NOTE | 2020-08-28 18:48 | NUR ---
Pt aax4 Left knee dressing clean dry and intact with knee immobilizer. Left heel dressing clean dry and intact. On pain management. Denies any pain at this time. No acute distress noted, pt refusing to take oxycontin, stated that she's taking too many pain meds but would like to take by night only. frequent visual check done, on fall precaution, siderails up and bed alarm on. needs attended to and met. will continue to monitor.
[2020-08-28 20:04] VITALS: BP 124/74
[2020-08-28] MEDS: HYDROCODONE/APAP 10-325 MG TABLET PO PRN (20:06)
[2020-08-28] MEDS: ENOXAPARIN SODIUM 40 MG/0.4 ML DISP.SYRIN SQ SCH (20:07)
--- NOTE | 2020-08-28 20:30 | NUR ---
Received pt c/o pain. Administered PRN [place]. Resting in bed. AAOx4 Needs attended. Left knee dressing clean dry and intact with knee immobilizer. Left heel dressing clean dry and intact. No acute distress noted. Patient on scheduled OxyContin, patient been refusing " does not want to take it at all." Safety measures maintained. Needs attended too promptly. X1 BM, Kept clean dry and comfortable. Both legs offloaded with pillows. Will continue plan of care and monitor throughout the night.
[2020-08-29 04:00] VITALS: BP 128/79
[2020-08-29] MEDS: OXYCODONE HCL 10 MG TAB.SR.12H PO SCH (06:00)
[2020-08-29] MEDS: LEVOTHYROXINE SODIUM 25 MCG TABLET PO SCH (06:50)
[2020-08-29 07:30] VITALS: BP 127/82
[2020-08-29] MEDS: CYANOCOBALAMIN 1000 MCG/ML VIAL IM SCH (08:39)
[2020-08-29] MEDS: ENSURE WITH FIBER 237 ML LIQUID (CHOCOLATE) PO SCH (08:40)
[2020-08-29] MEDS: AMLODIPINE 5 MG TABLET PO SCH (08:40)
[2020-08-29] MEDS: THERAHONEY GEL 1.5 OZ TUBE TOP SCH (08:41)
[2020-08-29 15:56] VITALS: BP 128/86
[2020-08-29 16:42] VITALS: BP 126/70
--- NOTE | 2020-08-29 17:03 | NUR ---
patient alert, oriented x4, no sob, resp even nonlabored, skin warm and dry to touch, patient is max assist with adls, incontinent, offered bedpan, or assist to beside commode, patient refused to use bedpan, or bedside commode, non weight bearing on left leg, dressing changed, incision site is clean and dry, no redness noted, no drainage noted, leg brace opened up, checked for skin breakdown, noted with slightly redness to the upper inner and lateral thigh, removed brace for some time while in bed, reapplied again, redness was resolved to inner and lateral thigh, continue to inspect skin every shift, will endorse accrodingly, no other changes noted, wound care done as ordered, heels floated on pillows, patient does not want heel protectors, just want to float her heels on pillows. kept clean and dry.
[2020-08-29] MEDS ORDERED: ASPI81TA31 PO (18:18)
[2020-08-29] MEDS ORDERED: MULT-594 PO (18:45)
[2020-08-29] MEDS ORDERED: FURO-151 PO (18:45)
[2020-08-29] MEDS ORDERED: NYST15CR TP (18:45)
[2020-08-29] MEDS ORDERED: ATOR10TA PO (18:45)
[2020-08-29] MEDS ORDERED: ATEN50TA PO (18:45)
[2020-08-29] MEDS ORDERED: OXYC5TAB3 PO (18:45)
[2020-08-29] MEDS ORDERED: BISM-146 PO (18:45)
[2020-08-29] MEDS ORDERED: TIMO1DRO OP (18:45)
[2020-08-29] MEDS ORDERED: SENN-261 PO (18:45)
[2020-08-29] MEDS ORDERED: SPIR25TA PO (18:45)
[2020-08-29] MEDS ORDERED: CALC500T52 PO (18:45)
[2020-08-29] MEDS ORDERED: DEXT15DR6 OP (18:45)
[2020-08-29] MEDS ORDERED: FAMO-132 PO (18:45)
[2020-08-29] MEDS ORDERED: DIPH25TA62 PO (18:45)
[2020-08-29] MEDS ORDERED: BETA1TAB19 GT (18:45)
[2020-08-29] MEDS ORDERED: ENOX40DI SQ (18:45)
[2020-08-29] MEDS ORDERED: METH28OI2 TP (18:45)
[2020-08-29] MEDS ORDERED: GABA-532 PO (18:45)
[2020-08-29] MEDS ORDERED: SIME80TA15 PO (18:45)
[2020-08-29] MEDS ORDERED: ZOLP5TAB2 PO (18:45)
[2020-08-29] MEDS ORDERED: DOCU-141 PO (18:45)
[2020-08-29 20:04] VITALS: BP 108/70
[2020-08-29] MEDS: HYDROCODONE/APAP 10-325 MG TABLET PO PRN (20:17)
[2020-08-29] MEDS: ENOXAPARIN SODIUM 40 MG/0.4 ML DISP.SYRIN SQ SCH (20:18)
[2020-08-30 04:04] VITALS: BP 116/73
[2020-08-30] MEDS: LEVOTHYROXINE SODIUM 25 MCG TABLET PO SCH (06:08)
[2020-08-30] MEDS: CYANOCOBALAMIN 1000 MCG/ML VIAL IM SCH (08:28)
[2020-08-30] MEDS: ENSURE WITH FIBER 237 ML LIQUID (CHOCOLATE) PO SCH (08:29)
[2020-08-30] MEDS: AMLODIPINE 5 MG TABLET PO SCH (08:29)
[2020-08-30] MEDS: THERAHONEY GEL 1.5 OZ TUBE TOP SCH (08:30)
[2020-08-30 12:00] VITALS: BP 105/66
--- NOTE | 2020-08-30 14:50 | NUR ---
patient is alert, oriented x4, no acute changes noted, patient noted with no bm, offered patient prune juice, and stool softeners, patient stated that is her baseline, she goes bm after few days, patient stated she does not want any medication for constipation, education provided to patient about constipation, and importance of having bm every day, patient verbalized understanding of it. no skin issues noted, inspected the skin under leg brace. heels are floating on two pillows.
[2020-08-30 16:00] VITALS: BP 112/70
[2020-08-30] MEDS: HYDROCODONE/APAP 10-325 MG TABLET PO PRN (17:56)
[2020-08-30 20:30] VITALS: BP 108/62
[2020-08-30] MEDS: ENOXAPARIN SODIUM 40 MG/0.4 ML DISP.SYRIN SQ SCH (20:32)
--- NOTE | 2020-08-30 21:48 | NUR ---
Resting in bed watching TV. AAOx4 No acute distress noted. Left knee immobilizer intact with knee dressing with steristrips intact. Denies any pain at this time. VSS No acute distress noted. All due meds given. Patient on Lovenox for VTE. Incontinent of bowel and bladder. Kept clean and dry. No BM noted this shift. Left heel dressing intact. Will monitor patient.
[2020-08-31 05:40] VITALS: BP 131/68
[2020-08-31] MEDS: LEVOTHYROXINE SODIUM 25 MCG TABLET PO SCH (06:13)
--- NOTE | 2020-08-31 06:26 | NUR ---
End of shift notes: Quiet night. Slept well throughout the night. No distress noted. All needs attended and met. Denies any pain nor any discomfort. VSS. Incontinent of urine. Kept clean and dry.
[2020-08-31 07:30] VITALS: BP 105/70
[2020-08-31] MEDS: AMLODIPINE 5 MG TABLET PO SCH (08:19)
[2020-08-31] MEDS: CYANOCOBALAMIN 1000 MCG/ML VIAL IM SCH (08:19)
[2020-08-31] MEDS: ENSURE WITH FIBER 237 ML LIQUID (CHOCOLATE) PO SCH (08:20)
[2020-08-31] MEDS: THERAHONEY GEL 1.5 OZ TUBE TOP SCH (08:20)
--- NOTE | 2020-08-31 13:15 | NUR ---
wound tx performed to right heel, no drainage noted, no odor noted, heel noted with hard yellow and dark color callus, tx applied as ordered, heels are off the load, tx applied to right second toe as well, no odor noted, no drainage noted, pink in color. Addendum: 08/31/20 at 1321 by ERIC HORNE RN, RN correction: right 5th digit ulceration tx done as ordered,no drainage noted, no odor noted.
[2020-08-31 15:48] VITALS: BP 115/75
[2020-08-31] MEDS: HYDROCODONE/APAP 10-325 MG TABLET PO PRN (18:23)
[2020-08-31] MEDS: ENOXAPARIN SODIUM 40 MG/0.4 ML DISP.SYRIN SQ SCH (20:06)
[2020-08-31 20:32] VITALS: BP 106/78
--- NOTE | 2020-08-31 20:52 | NUR ---
Received pt resting in bed and watching tv. AAO x4. No acute distress noted. Denies pain/ discomfort. Noted that pt has not had BM for a few days, pt stated her last BM was 3 days ago. Offered pt prune juice and stool softener, pt refused. Risks and benefits explained, still refused. Due med given as ordered. Left knee immobilizer in place. Safety measures maintained. Call light and personal items within reach. Will continue to monitor.
[2020-09-01 05:45] VITALS: BP 120/74
[2020-09-01] MEDS: LEVOTHYROXINE SODIUM 25 MCG TABLET PO SCH (06:09)
[2020-09-01] MEDS: THERAHONEY GEL 1.5 OZ TUBE TOP SCH (08:33)
[2020-09-01] MEDS: AMLODIPINE 5 MG TABLET PO SCH (08:33)
[2020-09-01] MEDS: CYANOCOBALAMIN 1000 MCG/ML VIAL IM SCH (08:33)
[2020-09-01] MEDS: ENSURE WITH FIBER 237 ML LIQUID (CHOCOLATE) PO SCH (08:34)
[2020-09-01 10:37] VITALS: BP 109/71
[2020-09-01 11:46] LABS: BASOPHILS # (AUTO) 0.1 K/uL (0.0-8.0); BASOPHILS % (AUTO) 1.2 % (0.0-2.0); EOSINOPHILS # (AUTO) 0.1 K/uL (0.0-0.7); EOSINOPHILS % (AUTO) 1.9 % (0.0-7.0); HEMATOCRIT 32.9 % (31.2-41.9); HEMOGLOBIN 10.5 g/dL (10.9-14.3); LYMPHOCYTES # (AUTO) 1.5 K/uL (20.0-40.0); LYMPHOCYTES % (AUTO) 19.1 % (20.5-51.5); MEAN CORPUSCULAR HEMOGLOBIN 31.7 uug (24.7-32.8); MEAN CORPUSCULAR HGB CONC 32 g/dL (32.3-35.6); MEAN CORPUSCULAR VOLUME 99.6 fL (75.5-95.3); MONOCYTES % (AUTO) 12.8 % (0.0-11.0); PLATELET COUNT (AUTO) 268 K/uL (179-408); WHITE BLOOD COUNT (AUTO) 7.7 K/uL (3.8-11.8)
[2020-09-01 11:50] LABS: CREATININE 0.8 mg/dL (0.6-1.3); POTASSIUM 4.6 mmol/L (3.5-5.1)
[2020-09-01 11:55] LABS: BILIRUBIN,TOTAL 0.3 mg/dL (0.2-1.0); TOTAL PROTEIN, SERUM 6.6 g/dL (6.4-8.2)
[2020-09-01 12:00] VITALS: BP 107/70
[2020-09-01] MEDS ORDERED: BISACODYL 10 MG SUPP.RECT RC ONE (12:45)
[2020-09-01] MEDS ORDERED: BISACODYL 10 MG SUPP.RECT RC PRN (12:45)
[2020-09-01 14:17] LABS: *BILIRUBIN,URIN NEGATIVE (NEGATIVE); *BLOOD, URINE NEGATIVE (NEGATIVE); *CLARITY,URINE SLIGHTLY CLOUDY (CLEAR); *COLOR,URINE YELLOW (YELLOW); *KETONES,URINE NEGATIVE (NEGATIVE); *UROBILINOGEN,URINE 0.2 E.U./dl (NORMAL); LEUKOCYTE ESTERASE ,URINE NEGATIVE (NEGATIVE); NITRITE, URINE POSITIVE (NEGATIVE); UGLUCOSE NEGATIVE (NEGATIVE)
[2020-09-01 15:52] VITALS: BP 120/69
[2020-09-01 16:18] LABS: BACTERIA,URINE MANY /HPF (NONE SEEN); SQUAMOUS EPITHELIAL CELL,UR FEW /HPF (NONE SEEN)
[2020-09-01] MEDS: HYDROCODONE/APAP 10-325 MG TABLET PO PRN (18:32)
--- NOTE | 2020-09-01 18:43 | NUR ---
EOSS: Pt in bed, watching TV, A&Ox4, able to verbalize needs throughout shift. No acute distress noted. Pt reported 7/10 pain on verbal scale, PRN [place] administered per order. Dr. Stout notified of pt with no BM, new orders in place, carried out. Pt had large BM this afternoon after Dulcolax suppository administered per order. Due medications given per order. Wound treatment administered per order. Left knee immobilizer in place. Per OT, pt had episode of orthostatic hypotension this am. Pt reported feeling "lightheaded". Dr. Stout made aware with new orders. VSS at this time. Safety measures and fall precautions maintained. Call light and belongings within reach. Will endorse care to assistant shift supervisor nurse.
[2020-09-01 20:00] VITALS: BP 113/67
[2020-09-01] MEDS: ENOXAPARIN SODIUM 40 MG/0.4 ML DISP.SYRIN SQ SCH (20:37)
[2020-09-01] MEDS: DOCUSATE SODIUM 100 MG CAPSULE PO SCH (20:38)
--- NOTE | 2020-09-01 22:05 | NUR ---
Received patient resting in bed and watching tv. AAO x4. No acute distress noted. Denies pain/ discomfort. Patient has bowel moment in Am shift, refuse stool softener, docusate sodium at HS, Risks and benefits explained, still refused. Due med given as ordered. Left knee immobilizer in place. Safety measures maintained. Call light and personal items within reach. Will continue to monitor.
[2020-09-02 04:03] VITALS: BP 118/72
--- NOTE | 2020-09-02 04:34 | NUR ---
Patient slept well throughout the night No acute distress noted, no c/o pain no discomfort noted. VSS. Incontinent of urine. Kept clean and dry, safety measures taken all time call light with in reach. Continue with the plan of care.
[2020-09-02] MEDS: LEVOTHYROXINE SODIUM 25 MCG TABLET PO SCH (06:03)
[2020-09-02 07:30] VITALS: BP 114/72
[2020-09-02] MEDS: ENSURE WITH FIBER 237 ML LIQUID (CHOCOLATE) PO SCH (09:12)
[2020-09-02] MEDS: CYANOCOBALAMIN 1000 MCG/ML VIAL IM SCH (09:12)
[2020-09-02] MEDS: AMLODIPINE 5 MG TABLET PO SCH (09:12)
[2020-09-02] MEDS: THERAHONEY GEL 1.5 OZ TUBE TOP SCH (09:19)
[2020-09-02 15:46] VITALS: BP 100/62
[2020-09-02] MEDS: DOCUSATE SODIUM 100 MG CAPSULE PO SCH (20:01)
[2020-09-02] MEDS: ENOXAPARIN SODIUM 40 MG/0.4 ML DISP.SYRIN SQ SCH (20:02)
[2020-09-02 20:14] VITALS: BP 116/69
--- NOTE | 2020-09-02 21:49 | NUR ---
Received patient resting in bed and watching tv. AAO x4, no c/o pain or discomfort, Due medication administered as ordered. all needs anticipated,Left knee immobilizer in place. Safety measures maintained. Call light and personal items within reach. Will continue to monitor.
[2020-09-03 04:17] VITALS: BP 112/70
[2020-09-03] MEDS: LEVOTHYROXINE SODIUM 25 MCG TABLET PO SCH (06:13)
[2020-09-03 07:30] VITALS: BP 122/78
--- NOTE | 2020-09-03 07:40 | NUR ---
Received patient in bed, awake, oriented x 4, not in any form of distress, on room air. She denies any pain or discomfort at this time. Call light and frequently used items placed within patient's reach.
[2020-09-03] MEDS: CYANOCOBALAMIN 1000 MCG/ML VIAL IM SCH (08:57)
[2020-09-03] MEDS: AMLODIPINE 5 MG TABLET PO SCH (08:57)
[2020-09-03] MEDS: ENSURE WITH FIBER 237 ML LIQUID (CHOCOLATE) PO SCH (08:58)
[2020-09-03] MEDS: THERAHONEY GEL 1.5 OZ TUBE TOP SCH (09:03)
--- NOTE | 2020-09-03 13:01 | NUR ---
Bryan Romano DNP in the unit, given update and made aware of urine culture result and he ordered Keflex 250mg every 8hrs x 10 days.
[2020-09-03] MEDS: CEphaleXIN 250 MG CAPSULE PO SCH ×2 (14:30→21:17)
[2020-09-03 20:03] VITALS: BP 114/71
[2020-09-03] MEDS: HYDROCODONE/APAP 10-325 MG TABLET PO PRN (20:05)
[2020-09-03] MEDS: DOCUSATE SODIUM 100 MG CAPSULE PO SCH (20:38)
[2020-09-03] MEDS: ENOXAPARIN SODIUM 40 MG/0.4 ML DISP.SYRIN SQ SCH (20:39)
--- NOTE | 2020-09-03 21:35 | NUR ---
AAOx4 Watching TV upon initial rounds. No acute distress noted. Compliant with meds. Medicated with [place] as ordered. Relief noted. Needs attended. Dressing to left knee, left heel and right 5th toe done. Kept comfortable. Incontinent of urine x2. Kept clean and dry. Patient is on antibiotic for UTI. Tolerated well. No ill effects noted. Will monitor patient. Fall precautions maintained. Siderails up for safety.
[2020-09-04] MEDS: LEVOTHYROXINE SODIUM 25 MCG TABLET PO SCH (06:11)
[2020-09-04] MEDS: CEphaleXIN 250 MG CAPSULE PO SCH ×3 (06:11→21:54)
[2020-09-04 06:35] VITALS: BP 128/71
--- NOTE | 2020-09-04 06:35 | NUR ---
End of shift report. Quiet night. Slept well most of the shift. Attended to all needs.VSS. Kept comfortable.
[2020-09-04 08:10] VITALS: BP 114/72
[2020-09-04] MEDS: CYANOCOBALAMIN 1000 MCG/ML VIAL IM SCH (09:37)
[2020-09-04] MEDS: ENSURE WITH FIBER 237 ML LIQUID (CHOCOLATE) PO SCH (09:37)
[2020-09-04] MEDS: THERAHONEY GEL 1.5 OZ TUBE TOP SCH (09:43)
--- NOTE | 2020-09-04 09:45 | NUR ---
Received pt in bed, watching TV, no acute distress. A&Ox4, able to verbalize needs. Pt denies pain/discomfort at this time. VSS. Call light and belongings within reach. Will continue to monitor.
[2020-09-04] MEDS: AMLODIPINE 5 MG TABLET PO SCH (09:52)
[2020-09-04 09:53] VITALS: BP 130/89
[2020-09-04 14:58] VITALS: BP 107/68
--- NOTE | 2020-09-04 18:31 | NUR ---
Patient in bed resting. Awake and alert and oriented x 4. Patient has left leg steristrips, covered with harrison bandage, knee immobilizer, left heel ulcer, and right fifth digit ulcer, wounds cleaned with NS, therahoney applied, covered with gauze and kerlix, dressing clean dry and intact. Pt on RA. No signs of distress noted. No reports of pain. All medications given as ordered. Pt is incontinent, voids via diaper. Bed in low and locked position, call light within reach, bed alarm on, and safety and fall precautions in place. Will endorse to oncoming nurse.
[2020-09-04 20:04] VITALS: BP 114/68
[2020-09-04] MEDS: HYDROCODONE/APAP 10-325 MG TABLET PO PRN (20:14)
[2020-09-04] MEDS: DOCUSATE SODIUM 100 MG CAPSULE PO SCH (20:17)
[2020-09-04] MEDS: ENOXAPARIN SODIUM 40 MG/0.4 ML DISP.SYRIN SQ SCH (20:19)
--- NOTE | 2020-09-04 21:24 | NUR ---
resting in bed upon initial rounds. AAOx4 Compliant with meds. Medicated with [place] 1 tab for pain. Will monitor for relief. Needs attended. VSS. Incontinent of urine x2 Kept clean and dry. Left leg immobilizer intact. left heel dressing intact. No acute distress noted. Kept comfortable. Right 5th toe dressing also covered with dressing. BLE elevated up on pillow.
[2020-09-05 04:04] VITALS: BP 124/74
[2020-09-05] MEDS: CEphaleXIN 250 MG CAPSULE PO SCH ×3 (05:51→21:23)
--- NOTE | 2020-09-05 06:16 | NUR ---
End of shift notes: Slept well most of the shift. No acute distress. No complaints presented during shift. Incontinent of urine. Kept clean and dry. No BM this shift.
[2020-09-05] MEDS: LEVOTHYROXINE SODIUM 25 MCG TABLET PO SCH (06:23)
[2020-09-05 08:18] VITALS: BP 124/85
[2020-09-05] MEDS: ENSURE WITH FIBER 237 ML LIQUID (CHOCOLATE) PO SCH (09:18)
[2020-09-05] MEDS: CYANOCOBALAMIN 1000 MCG/ML VIAL IM SCH (09:18)
[2020-09-05] MEDS: AMLODIPINE 5 MG TABLET PO SCH (09:18)
[2020-09-05] MEDS: THERAHONEY GEL 1.5 OZ TUBE TOP SCH (09:19)
[2020-09-05 16:00] VITALS: BP 109/68
[2020-09-05] MEDS: HYDROCODONE/APAP 10-325 MG TABLET PO PRN (18:47)
[2020-09-05 20:00] VITALS: BP 109/75
--- NOTE | 2020-09-05 20:00 | NUR ---
Received patient lying in bed. AAOx4. In no acute distress. Denies any pain or SOB. Brace on left LLE in place. Placed back harrison bandage on left LLE. Needs assessed and attended to. Safety measure initiated and call sheets within reached.
[2020-09-05] MEDS: ENOXAPARIN SODIUM 40 MG/0.4 ML DISP.SYRIN SQ SCH (21:24)
[2020-09-05] MEDS: DOCUSATE SODIUM 100 MG CAPSULE PO SCH (21:24)
[2020-09-06 04:00] VITALS: BP 113/77
--- NOTE | 2020-09-06 05:59 | NUR ---
Patient slept well throughout the shift. No complain of pain or SOB. Brace on left LLE in place. Needs attended to and met. Safety measure maintained and call sheets within reached.
[2020-09-06] MEDS: LEVOTHYROXINE SODIUM 25 MCG TABLET PO SCH (06:16)
[2020-09-06] MEDS: CEphaleXIN 250 MG CAPSULE PO SCH (06:16)
--- NOTE | 2020-09-06 07:30 | NUR ---
pt awake alert and orientedx4, left heel ulcer and right 5th digit ulcer. pt on room air, wheelchair bound, pt incontinent and voids via diaper. pt has no signs of distress or pain noted at this time, bed in low and locked position, call light within reach safety and fall precautions in place. Will continue to monitor.
[2020-09-06] MEDS: ENSURE WITH FIBER 237 ML LIQUID (CHOCOLATE) PO SCH (08:25)
[2020-09-06 08:30] VITALS: BP 116/84
[2020-09-06] MEDS: AMLODIPINE 5 MG TABLET PO SCH (08:30)
[2020-09-06] MEDS: THERAHONEY GEL 1.5 OZ TUBE TOP SCH (08:30)
--- NOTE | 2020-09-06 11:45 | NUR ---
pt discharged home with all belongings, paperwork, and prescriptions. pt going home with , pt on room air no signs of distress noted, no reports of pain, all medications given as ordered. pt awake alert and oriented x4, left heel ulcer, right 5th digit ulcer covered and therahoney gel applied, covered with gauze and kerlix. pt left in stable condition via wheelchair to private car.
== END 2020-09-06 11:45 | disposition home health service (06) | DRG 559 ==
PROVIDERS: ADMIT Physical Medicine & Rehabilitation Pain Medicine; ATTEND Physical Medicine & Rehabilitation Pain Medicine
DX: S82.142D Displaced bicondylar fracture of left tibia, subsequent encounter for closed fracture with routine healing (principal); E43 Unspecified severe protein-calorie malnutrition; D68.59 Other primary thrombophilia; N39.0 Urinary tract infection, site not specified; L97.829 Non-pressure chronic ulcer of other part of left lower leg with unspecified severity; L97.819 Non-pressure chronic ulcer of other part of right lower leg with unspecified severity; W19.XXXD Unspecified fall, subsequent encounter; D69.6 Thrombocytopenia, unspecified; D53.9 Nutritional anemia, unspecified; E03.9 Hypothyroidism, unspecified; E53.8 Deficiency of other specified B group vitamins; E83.42 Hypomagnesemia; F17.200 Nicotine dependence, unspecified, uncomplicated; Z99.3 Dependence on wheelchair; Z79.899 Other long term (current) drug therapy; B96.89 Other specified bacterial agents as the cause of diseases classified elsewhere; G62.9 Polyneuropathy, unspecified; G89.29 Other chronic pain; I10 Essential (primary) hypertension; M19.90 Unspecified osteoarthritis, unspecified site; M81.0 Age-related osteoporosis without current pathological fracture; L98.499 Non-pressure chronic ulcer of skin of other sites with unspecified severity
CPT/HCPCS: 36415; 70030-TC; 83735; 84100; 84443; 85025; 87077; 87086; C1758; J1650; J3420

== ENCOUNTER 2023-07-02 18:45 | Inpatient (IN) | payer OTHER, MEDICARE ==
[~2023-07-02] VITALS: Ht 167.6 cm; Wt 45.4 kg
[2023-07-02] MEDS ORDERED: IV NORMAL SALINE 1000 ML BAG IV ONE (19:15)
[2023-07-02] MEDS ORDERED: VANCOMYCIN IV 1,000 MG in IV DEXTROSE 5% 250 ML IV ONE (19:15)
[2023-07-02 19:54] LABS: BASOPHILS # (AUTO) 0.3 K/UL (0.0-0.2); DIFFERENTIAL COMMENT 0; EOSINOPHILS # (AUTO) 0.1 K/uL (0.0-0.7); EOSINOPHILS % (AUTO) 0.9 % (0.0-7.0); HEMATOCRIT 32.9 % (31.2-41.9); HEMOGLOBIN 10.8 g/dL (10.9-14.3); LYMPHOCYTES # (AUTO) 1.4 K/uL (0.8-4.8); LYMPHOCYTES % (AUTO) 11.6 % (20.5-51.5); MEAN CORPUSCULAR HEMOGLOBIN 25.4 uug (24.7-32.8); MEAN CORPUSCULAR HGB CONC 33 g/dL (32.3-35.6); MEAN CORPUSCULAR VOLUME 77.1 fL (75.5-95.3); MONOCYTES % (AUTO) 7.7 % (0.0-11.0); NEUTROPHILS # (AUTO) 9.7 K/uL (1.8-8.9); NEUTROPHILS % (AUTO) 77.8 % (38.5-71.5); PLATELET COUNT (AUTO) 234 K/uL (179-408); RED BLOOD CELL COUNT(AUTO) 4.27 MIL/uL (3.63-4.92); RED CELL DISTRIBUTION WIDTH 14.5 % (12.3-17.7); WHITE BLOOD COUNT (AUTO) 12.5 K/uL (3.8-11.8)
[2023-07-02 19:56] LABS: CALCIUM 7.5 mg/dL (8.5-10.1); CARBON DIOXIDE 24 mmol/L (21-32); CHLORIDE 94 mmol/L (98-107); CREATININE 0.8 mg/dL (0.6-1.3); GLUCOSE 119 mg/dL (74-106); POTASSIUM 4.1 mmol/L (3.5-5.1); SODIUM SERUM 124 mmol/L (136-145); UREA NITROGEN, BLOOD 26 mg/dL (7-18)
[2023-07-02] MEDS ORDERED: VANCOMYCIN 1000 MG VIAL ONE (19:56)
[2023-07-02 20:09] LABS: ALANINE AMINOTRANSFERASE 19 U/L (14-59); ALKALINE PHOSPHATASE 127 U/L (50-136); ASPARTATE AMINOTRANSFERASE 17 U/L (15-37); BILIRUBIN,DIRECT 0.3 mg/dL (0.0-0.2); BILIRUBIN,TOTAL 0.5 mg/dL (0.2-1.0); NT-PRO BNP 916 pg/mL (0-125); TOTAL PROTEIN, SERUM 4.7 g/dL (6.4-8.2)
[2023-07-02 20:19] LABS: ALBUMIN 0.8 g/dL (3.4-5.0)
[2023-07-02] MEDS ORDERED: MAGNESIUM HYDROXIDE 30 ML LIQUID UDC PO PRN (22:00)
[2023-07-02] MEDS ORDERED: ONDANSETRON 4 MG/2 ML VIAL IV PRN (22:00)
[2023-07-02] MEDS ORDERED: REMEDY ESSENTIAL ZINC PASTE 113 GM TP PRN (22:00)
[2023-07-02] MEDS ORDERED: ACETAMINOPHEN 325 MG TABLET PO PRN (22:00)
[2023-07-02 23:30] VITALS: BP 108/74; TEMP 96; O2SAT 99
[2023-07-03 00:30] VITALS: BP 116/68; TEMP 97.8; O2SAT 99
[2023-07-03 04:00] VITALS: BP 100/70; TEMP 96; O2SAT 98
[2023-07-03 06:49] VITALS: BP 105/74; TEMP 97.6; O2SAT 98
[2023-07-03 07:29] LABS: BASOPHILS % (AUTO) 0.3 % (0.0-2.0); EOSINOPHILS # (AUTO) 0.1 K/uL (0.0-0.7); EOSINOPHILS % (AUTO) 0.6 % (0.0-7.0); HEMATOCRIT 33.1 % (31.2-41.9); HEMOGLOBIN 10.7 g/dL (10.9-14.3); LYMPHOCYTES # (AUTO) 2.3 K/uL (0.8-4.8); LYMPHOCYTES % (AUTO) 20.7 % (20.5-51.5); MEAN CORPUSCULAR HEMOGLOBIN 25.2 uug (24.7-32.8); MEAN CORPUSCULAR HGB CONC 32 g/dL (32.3-35.6); MEAN CORPUSCULAR VOLUME 77.9 fL (75.5-95.3); NEUTROPHILS # (AUTO) 7.6 K/uL (1.8-8.9); NEUTROPHILS % (AUTO) 69.4 % (38.5-71.5); PLATELET COUNT (AUTO) 207 K/uL (179-408); RED BLOOD CELL COUNT(AUTO) 4.25 MIL/uL (3.63-4.92); RED CELL DISTRIBUTION WIDTH 14.3 % (12.3-17.7)
[2023-07-03 07:37] LABS: DIFFERENTIAL COMMENT 1
[2023-07-03 07:52] LABS: CALCIUM 6.8 mg/dL (8.5-10.1); CREATININE 0.5 mg/dL (0.6-1.3); MAGNESIUM 1.7 mg/dL (1.8-2.4); PHOSPHOROUS 2.6 mg/dL (2.5-4.9); POTASSIUM 4.1 mmol/L (3.5-5.1)
[2023-07-03 08:43] LABS: THYROID STIMULATING HORMONE 10.37 mIU/mL (0.358-3.740)
[2023-07-03] MEDS: PANTOPRAZOLE SODIUM 40 MG VIAL IV SCH (09:05)
[2023-07-03] MEDS ORDERED: MAGNESIUM OXIDE 400 MG TABLET PO ONE (11:00)
[2023-07-03 11:44] VITALS: BP 119/78; TEMP 97.1; O2SAT 95
[2023-07-03] MEDS ORDERED: MORPHINE SULFATE 20 MG/1 ML ORAL LIQ. PO PRN (11:45)
[2023-07-03] MEDS ORDERED: IV NS 1000 ML 1,000 ML IV ONE (12:00)
[2023-07-03] MEDS: HYDROCODONE/APAP 5-325MG TABLET PO PRN ×2 (13:15→21:43)
[2023-07-03] MEDS: ENSURE ENLIVE (VAN) 240 ML LIQUID PO SCH ×2 (13:15→16:51)
[2023-07-03 16:00] VITALS: BP 106/69; TEMP 97.8; O2SAT 96
[2023-07-03] MEDS ORDERED: MAGNESIUM SULFATE/D5W 100 ML IV SCH (16:00)
[2023-07-03] MEDS: ARGININE/GLUTAMINE/CALCIUM BMB 1 EACH POWD.PACK PO SCH (16:51)
[2023-07-03 20:00] VITALS: BP 96/51; TEMP 97.7; O2SAT 95
[2023-07-03] MEDS ORDERED: VANCOMYCIN IV 1,000 MG in IV DEXTROSE 5% 250 ML IV SCH (20:00)
[2023-07-03] MEDS: VANCOMYCIN IV 750 MG in IV DEXTROSE 5% 250 ML IV SCH (21:23)
[2023-07-04] VITALS (58 sets, daily range): BP systolic 48–146; BP diastolic 20–110; TEMP 97–98.5; O2SAT 95–98
[2023-07-04] MEDS ORDERED: NOREPINEPHRINE BITARTRATE 8 MG in IV NORMAL SALINE 242 ML IV PRN (06:00)
[2023-07-04] MEDS: LEVOTHYROXINE SODIUM 25 MCG TABLET PO SCH ×2 (06:00→06:07)
[2023-07-04] MEDS ORDERED: IV NORMAL SALINE 250 ML IV ONE (06:00)
[2023-07-04] MEDS: NOREPINEPHRINE BITARTRATE 32 MG in IV NORMAL SALINE 218 ML IV PRN ×2 (07:40→22:46)
[2023-07-04] MEDS: CEFTRIAXONE 1 G in IV DEXTROSE 5% 50 ML IV SCH (08:33)
[2023-07-04] MEDS: PANTOPRAZOLE SODIUM 40 MG VIAL IV SCH (08:37)
[2023-07-04] MEDS: MORPHINE SULFATE 2 MG/1 ML DISP.SYRIN IV PRN ×2 (08:39→14:41)
[2023-07-04] MEDS: ARGININE/GLUTAMINE/CALCIUM BMB 1 EACH POWD.PACK PO SCH ×2 (08:46→17:00)
[2023-07-04] MEDS: ENSURE ENLIVE (VAN) 240 ML LIQUID PO SCH ×3 (08:46→17:00)
[2023-07-04 11:35] LABS: *SODIUM RNDM,URINE 15 mmol/L (40-220)
[2023-07-04] MEDS ORDERED: IV NORMAL SALINE 1000 ML BAG IV ONE (12:00)
[2023-07-04] MEDS: PHENYLEPHRINE IV 100 MG in IV NORMAL SALINE 240 ML IV PRN (12:30)
[2023-07-04] MEDS ORDERED: LEVOTHYROXINE SODIUM 25 MCG TABLET PO SCH (14:45)
[2023-07-04 15:16] LABS: BASOPHILS # (AUTO) 0.2 K/UL (0.0-0.2); BASOPHILS % (AUTO) 0.9 % (0.0-2.0); EOSINOPHILS # (AUTO) 0.2 K/uL (0.0-0.7); EOSINOPHILS % (AUTO) 0.9 % (0.0-7.0); HEMATOCRIT 37.4 % (31.2-41.9); LYMPHOCYTES # (AUTO) 0.5 K/uL (0.8-4.8); LYMPHOCYTES % (AUTO) 2.4 % (20.5-51.5); MEAN CORPUSCULAR HEMOGLOBIN 25.1 uug (24.7-32.8); MEAN CORPUSCULAR HGB CONC 32 g/dL (32.3-35.6); MEAN CORPUSCULAR VOLUME 78.4 fL (75.5-95.3); MONOCYTES # (AUTO) 1.3 K/uL (0.1-1.30); NEUTROPHILS # (AUTO) 18.8 K/uL (1.8-8.9); NEUTROPHILS % (AUTO) 89.8 % (38.5-71.5); PLATELET COUNT (AUTO) 308 K/uL (179-408); RED BLOOD CELL COUNT(AUTO) 4.77 MIL/uL (3.63-4.92); RED CELL DISTRIBUTION WIDTH 14.7 % (12.3-17.7); WHITE BLOOD COUNT (AUTO) 20.9 K/uL (3.8-11.8)
[2023-07-04 15:38] LABS: DIFFERENTIAL COMMENT 1
[2023-07-04 15:39] LABS: CALCIUM 7.1 mg/dL (8.5-10.1); CREATININE 0.8 mg/dL (0.6-1.3); POTASSIUM 4.3 mmol/L (3.5-5.1)
[2023-07-04 15:42] LABS: MAGNESIUM 1.6 mg/dL (1.8-2.4); URIC ACID 4.7 mg/dL (2.6-6.0)
[2023-07-04 15:44] LABS: BILIRUBIN,TOTAL 0.9 mg/dL (0.2-1.0); TOTAL PROTEIN, SERUM 4.9 g/dL (6.4-8.2)
[2023-07-04 15:54] LABS: THYROID STIMULATING HORMONE 11.439 mIU/mL (0.358-3.740)
[2023-07-04 17:05] LABS: ALBUMIN 0.8 g/dL (3.4-5.0)
[2023-07-04] MEDS: ALBUMIN HUMAN 25% 100 ML IV SCH (17:44)
[2023-07-04] MEDS: VASOPRESSIN 40 UNIT in IV NORMAL SALINE 40 ML IV PRN (18:45)
[2023-07-04] MEDS: VANCOMYCIN IV 750 MG in IV DEXTROSE 5% 250 ML IV SCH (21:06)
[2023-07-04] MEDS ORDERED: VASOPRESSIN 20 UNIT/ML VIAL ONE (21:49)
[2023-07-04] MEDS ORDERED: NOREPINEPHRINE BITARTRATE 4 MG/4 ML VIAL IV ONE (22:33)
[2023-07-05] VITALS (96 sets, daily range): BP systolic 91–123; BP diastolic 43–101; TEMP 96–98.9; O2SAT 94–97
[2023-07-05] MEDS: ALBUMIN HUMAN 25% 100 ML IV SCH ×3 (00:14→11:40)
[2023-07-05 05:03] LABS: BASOPHILS # (AUTO) 0.1 K/UL (0.0-0.2); BASOPHILS % (AUTO) 0.8 % (0.0-2.0); EOSINOPHILS % (AUTO) 0.3 % (0.0-7.0); HEMATOCRIT 28.8 % (31.2-41.9); HEMOGLOBIN 9.2 g/dL (10.9-14.3); LYMPHOCYTES # (AUTO) 3.2 K/uL (0.8-4.8); LYMPHOCYTES % (AUTO) 20.4 % (20.5-51.5); MEAN CORPUSCULAR HEMOGLOBIN 25.2 uug (24.7-32.8); MEAN CORPUSCULAR HGB CONC 32 g/dL (32.3-35.6); MEAN CORPUSCULAR VOLUME 78.4 fL (75.5-95.3); MONOCYTES # (AUTO) 1.2 K/uL (0.1-1.30); MONOCYTES % (AUTO) 7.8 % (0.0-11.0); NEUTROPHILS % (AUTO) 70.7 % (38.5-71.5); PLATELET COUNT (AUTO) 162 K/uL (179-408); RED BLOOD CELL COUNT(AUTO) 3.67 MIL/uL (3.63-4.92); RED CELL DISTRIBUTION WIDTH 14.7 % (12.3-17.7); WHITE BLOOD COUNT (AUTO) 15.5 K/uL (3.8-11.8)
[2023-07-05 05:26] LABS: MAGNESIUM 1.6 mg/dL (1.8-2.4)
[2023-07-05 05:30] LABS: ALBUMIN 1.8 g/dL (3.4-5.0); BILIRUBIN,TOTAL 1.3 mg/dL (0.2-1.0); CALCIUM 6.8 mg/dL (8.5-10.1); CREATININE 0.9 mg/dL (0.6-1.3); POTASSIUM 3.8 mmol/L (3.5-5.1); TOTAL PROTEIN, SERUM 4.6 g/dL (6.4-8.2)
[2023-07-05 05:40] LABS: DIFFERENTIAL COMMENT 1
[2023-07-05] MEDS: VASOPRESSIN 40 UNIT in IV NORMAL SALINE 40 ML IV PRN (06:37)
[2023-07-05] MEDS: LEVOTHYROXINE SODIUM 25 MCG TABLET PO SCH (07:00)
[2023-07-05] MEDS: CEFTRIAXONE 1 G in IV DEXTROSE 5% 50 ML IV SCH (07:57)
[2023-07-05] MEDS: PHENYLEPHRINE IV 100 MG in IV NORMAL SALINE 240 ML IV PRN (07:58)
[2023-07-05] MEDS: PANTOPRAZOLE SODIUM 40 MG VIAL IV SCH (08:04)
[2023-07-05] MEDS: ENSURE ENLIVE (VAN) 240 ML LIQUID PO SCH ×3 (08:04→17:00)
[2023-07-05] MEDS: ARGININE/GLUTAMINE/CALCIUM BMB 1 EACH POWD.PACK PO SCH ×2 (08:04→17:00)
[2023-07-05] MEDS: MORPHINE SULFATE 2 MG/1 ML DISP.SYRIN IV PRN ×2 (08:12→12:20)
[2023-07-05] MEDS: MAGNESIUM SULFATE/D5W 100 ML IV SCH ×2 (09:07→10:01)
[2023-07-05] MEDS: HYDROCORTISONE SOD SUCCINATE 100 MG/2 ML VIAL IV SCH ×2 (09:07→20:48)
[2023-07-05 11:12] LABS: *CREATININE,URINE 31.4 mg/dL (30-125); *URINE TOTAL PROTEIN RANDOM 84.5 mg/dL (<150/24HR)
[2023-07-05 11:13] LABS: *BLOOD, URINE 3+ (NEGATIVE); *CLARITY,URINE CLOUDY (CLEAR); *COLOR,URINE YELLOW (YELLOW); *KETONES,URINE NEGATIVE (NEGATIVE); *PROTEIN,URINE 2+ (NEGATIVE); LEUKOCYTE ESTERASE ,URINE TRACE (NEGATIVE); NITRITE, URINE NEGATIVE (NEGATIVE); UGLUCOSE NEGATIVE (NEGATIVE)
[2023-07-05 11:19] LABS: *BILIRUBIN,URIN 1+ (NEGATIVE)
[2023-07-05] MEDS: NOREPINEPHRINE BITARTRATE 32 MG in IV NORMAL SALINE 218 ML IV PRN (11:47)
[2023-07-05] MEDS ORDERED: MAGNESIUM SULFATE/D5W 100 ML IV SCH (12:00)
[2023-07-05] MEDS ORDERED: AMIODARONE HCL IV 150 MG in IV DEXTROSE 5% 100 ML IV ONE (12:30)
[2023-07-05] MEDS: AMIODARONE HCL IV 450 MG in IV DEXTROSE 5% 250 ML IV PRN ×2 (13:13→20:53)
[2023-07-05 14:41] LABS: RBC,URINE 20-50 /HPF (0-3); WBC,URINE 0-3 /HPF (0-3)
[2023-07-05 14:42] LABS: BACTERIA,URINE MODERATE /HPF (NONE SEEN); SQUAMOUS EPITHELIAL CELL,UR FEW /HPF (NONE SEEN)
[2023-07-05 14:43] LABS: URINE AMORPHOUS URATE MODERATE /HPF
[2023-07-05] MEDS: VANCOMYCIN IV 750 MG in IV DEXTROSE 5% 250 ML IV SCH (20:48)
[2023-07-06] VITALS (88 sets, daily range): BP systolic 63–149; BP diastolic 52–99; TEMP 92–97.8; O2SAT 77–98
[2023-07-06] MEDS: NOREPINEPHRINE BITARTRATE 32 MG in IV NORMAL SALINE 218 ML IV PRN ×2 (03:29→10:31)
[2023-07-06 05:27] LABS: BASOPHILS # (AUTO) 0.1 K/UL (0.0-0.2); BASOPHILS % (AUTO) 0.6 % (0.0-2.0); EOSINOPHILS % (AUTO) 0.1 % (0.0-7.0); HEMATOCRIT 28.6 % (31.2-41.9); LYMPHOCYTES # (AUTO) 3.2 K/uL (0.8-4.8); LYMPHOCYTES % (AUTO) 18.7 % (20.5-51.5); MEAN CORPUSCULAR HEMOGLOBIN 25.5 uug (24.7-32.8); MEAN CORPUSCULAR HGB CONC 32 g/dL (32.3-35.6); MEAN CORPUSCULAR VOLUME 80.6 fL (75.5-95.3); MONOCYTES # (AUTO) 1.2 K/uL (0.1-1.30); MONOCYTES % (AUTO) 6.7 % (0.0-11.0); NEUTROPHILS # (AUTO) 12.8 K/uL (1.8-8.9); NEUTROPHILS % (AUTO) 73.9 % (38.5-71.5); PLATELET COUNT (AUTO) 127 K/uL (179-408); RED BLOOD CELL COUNT(AUTO) 3.55 MIL/uL (3.63-4.92); WHITE BLOOD COUNT (AUTO) 17.3 K/uL (3.8-11.8)
[2023-07-06 05:30] LABS: DIFFERENTIAL COMMENT 1
[2023-07-06 05:43] LABS: ALBUMIN 2.2 g/dL (3.4-5.0); BILIRUBIN,TOTAL 1.8 mg/dL (0.2-1.0); CALCIUM 7.5 mg/dL (8.5-10.1); CREATININE 0.9 mg/dL (0.6-1.3); POTASSIUM 4.6 mmol/L (3.5-5.1); TOTAL PROTEIN, SERUM 4.9 g/dL (6.4-8.2)
[2023-07-06] MEDS: LEVOTHYROXINE SODIUM 25 MCG TABLET PO SCH (07:00)
[2023-07-06] MEDS: CEFTRIAXONE 1 G in IV DEXTROSE 5% 50 ML IV SCH (08:31)
[2023-07-06] MEDS: HYDROCORTISONE SOD SUCCINATE 100 MG/2 ML VIAL IV SCH ×2 (08:34→20:54)
[2023-07-06] MEDS: PANTOPRAZOLE SODIUM 40 MG VIAL IV SCH (08:34)
[2023-07-06] MEDS: VASOPRESSIN 40 UNIT in IV NORMAL SALINE 40 ML IV PRN (08:53)
[2023-07-06] MEDS: AMIODARONE HCL IV 450 MG in IV DEXTROSE 5% 250 ML IV PRN (08:54)
[2023-07-06] MEDS: ARGININE/GLUTAMINE/CALCIUM BMB 1 EACH POWD.PACK PO SCH (09:00)
[2023-07-06] MEDS: ENSURE ENLIVE (VAN) 240 ML LIQUID PO SCH (09:00)
[2023-07-06 11:53] LABS: ABG BASE EXCESS -18.8 mmol/L (-2.0-2.0); ABG HCO3 9.8 mmol/L (22.0-26.0); ABG PO2 77.2 mmHg (75.0-100.0); ABG SITE RIGHT RADIAL; ABG TOTAL HEMOGLOBIN 10.1 G/dL (12.0-16.0); AaDO2 90.2 mmHg; COHb 0.6 % (0.0-3.9); O2Hb 91.6 % (94.0-97.0)
[2023-07-06] MEDS ORDERED: SODIUM BICARBONATE 8.4% 50 MEQ/50 ML DISP.SYRIN IV ONE (12:15)
[2023-07-06] MEDS ORDERED: DOBUTamine IV 250 ML IV PRN (12:30)
[2023-07-06] MEDS ORDERED: SODIUM BICARBONATE 8.4% 50 MEQ in IV NS 1000 ML 1,000 ML IV SCH (12:30)
[2023-07-06 13:16] LABS: LACTIC ACID 9.6 mmol/L (0.4-2.0)
[2023-07-06] MEDS ORDERED: JEVITY 1.2 1000 ML LIQUID GT PRN ×2 (15:00→15:19)
[2023-07-06] MEDS: MINERAL OIL/PETROLAT OPHT OINT 3.5 GM TUBE EACHEYE SCH ×2 (16:51→20:55)
[2023-07-06] MEDS: MULTIVITAMINS,THERAPEUTIC TABLET GT SCH (16:52)
[2023-07-06] MEDS: VANCOMYCIN IV 750 MG in IV DEXTROSE 5% 250 ML IV SCH (20:54)
[2023-07-07] VITALS (88 sets, daily range): BP systolic 74–146; BP diastolic 47–96; TEMP 97.1–98.4; O2SAT 93–100
[2023-07-07] MEDS: NOREPINEPHRINE BITARTRATE 32 MG in IV NORMAL SALINE 218 ML IV PRN ×2 (00:19→11:48)
[2023-07-07] MEDS: MORPHINE SULFATE 2 MG/1 ML DISP.SYRIN IV PRN ×2 (02:14→20:49)
[2023-07-07 05:03] LABS: BASOPHILS # (AUTO) 0.1 K/UL (0.0-0.2); BASOPHILS % (AUTO) 0.3 % (0.0-2.0); EOSINOPHILS # (AUTO) 0.1 K/uL (0.0-0.7); EOSINOPHILS % (AUTO) 0.8 % (0.0-7.0); HEMATOCRIT 28.4 % (31.2-41.9); HEMOGLOBIN 9.2 g/dL (10.9-14.3); LYMPHOCYTES # (AUTO) 2.3 K/uL (0.8-4.8); LYMPHOCYTES % (AUTO) 12.6 % (20.5-51.5); MEAN CORPUSCULAR HEMOGLOBIN 25.3 uug (24.7-32.8); MEAN CORPUSCULAR HGB CONC 33 g/dL (32.3-35.6); MEAN CORPUSCULAR VOLUME 77.9 fL (75.5-95.3); MONOCYTES # (AUTO) 0.9 K/uL (0.1-1.30); MONOCYTES % (AUTO) 5.2 % (0.0-11.0); NEUTROPHILS # (AUTO) 14.7 K/uL (1.8-8.9); NEUTROPHILS % (AUTO) 81.1 % (38.5-71.5); PLATELET COUNT (AUTO) 81 K/uL (179-408); RED BLOOD CELL COUNT(AUTO) 3.65 MIL/uL (3.63-4.92); RED CELL DISTRIBUTION WIDTH 15.1 % (12.3-17.7); WHITE BLOOD COUNT (AUTO) 18.2 K/uL (3.8-11.8)
[2023-07-07 05:21] LABS: DIFFERENTIAL COMMENT 1
[2023-07-07 05:25] LABS: MAGNESIUM 2.3 mg/dL (1.8-2.4); PHOSPHOROUS 3.2 mg/dL (2.5-4.9); URIC ACID 6.2 mg/dL (2.6-6.0)
[2023-07-07] MEDS: MINERAL OIL/PETROLAT OPHT OINT 3.5 GM TUBE EACHEYE SCH ×3 (05:28→22:17)
[2023-07-07 05:39] LABS: ALBUMIN 1.8 g/dL (3.4-5.0); BILIRUBIN,TOTAL 1.6 mg/dL (0.2-1.0); CALCIUM 7.6 mg/dL (8.5-10.1); CREATININE 0.8 mg/dL (0.6-1.3); TOTAL PROTEIN, SERUM 4.6 g/dL (6.4-8.2)
[2023-07-07 05:42] LABS: THYROID STIMULATING HORMONE 1.236 mIU/mL (0.358-3.740)
[2023-07-07 06:15] LABS: ABG BASE EXCESS -0.1 mmol/L (-2.0-2.0); ABG HCO3 22.9 mmol/L (22.0-26.0); ABG PCO2 31.1 mmHg (35.0-48.0); ABG PH 7.485 (7.340-7.440); ABG PO2 88.1 mmHg (75.0-100.0); ABG SITE LEFT RADIAL; ABG TOTAL HEMOGLOBIN 9.7 G/dL (12.0-16.0); AaDO2 97.4 mmHg; COHb 0.5 % (0.0-3.9); MetHb 0.1 % (0.0-1.5); O2Hb 96.2 % (94.0-97.0)
[2023-07-07] MEDS: LEVOTHYROXINE SODIUM 25 MCG TABLET PO SCH (06:17)
[2023-07-07] MEDS: CEFTRIAXONE 1 G in IV DEXTROSE 5% 50 ML IV SCH (07:47)
[2023-07-07] MEDS ORDERED: MULTIVITAMINS 5 ML LIQUID UDC GT SCH (09:00)
[2023-07-07] MEDS: MULTIVITAMINS,THERAPEUTIC TABLET GT SCH (09:03)
[2023-07-07] MEDS: PANTOPRAZOLE SODIUM 40 MG VIAL IV SCH ×2 (09:04→20:49)
[2023-07-07] MEDS: HYDROCORTISONE SOD SUCCINATE 100 MG/2 ML VIAL IV SCH ×2 (09:04→20:50)
[2023-07-07] MEDS: MUPIROCIN 2% OINT 22 GM TUBE TP SCH (09:06)
[2023-07-07] MEDS: FUROSEMIDE 20 MG/2 ML VIAL IV SCH ×2 (10:08→20:49)
[2023-07-07] MEDS: VANCOMYCIN IV 750 MG in IV DEXTROSE 5% 250 ML IV SCH (20:13)
[2023-07-07] MEDS: MEROPENEM 1 G in IV NORMAL SALINE 100 ML IV SCH (22:17)
[2023-07-08] VITALS (65 sets, daily range): BP systolic 82–135; BP diastolic 56–105; TEMP 97.8–98.2; O2SAT 94–99
[2023-07-08] MEDS: NOREPINEPHRINE BITARTRATE 32 MG in IV NORMAL SALINE 218 ML IV PRN (02:17)
[2023-07-08 05:22] LABS: CALCIUM 7.7 mg/dL (8.5-10.1); CREATININE 1.1 mg/dL (0.6-1.3); POTASSIUM 3.4 mmol/L (3.5-5.1)
[2023-07-08] MEDS: MINERAL OIL/PETROLAT OPHT OINT 3.5 GM TUBE EACHEYE SCH ×3 (06:05→21:30)
[2023-07-08] MEDS: MORPHINE SULFATE 2 MG/1 ML DISP.SYRIN IV PRN (06:06)
[2023-07-08] MEDS: MEROPENEM 1 G in IV NORMAL SALINE 100 ML IV SCH ×2 (09:23→21:27)
[2023-07-08] MEDS: LEVOTHYROXINE SODIUM 25 MCG TABLET PO SCH (09:42)
[2023-07-08] MEDS: POTASSIUM CHLORIDE 50 ML IV SCH ×4 (09:42→13:41)
[2023-07-08] MEDS: MULTIVITAMINS,THERAPEUTIC TABLET GT SCH (09:42)
[2023-07-08] MEDS: HYDROCORTISONE SOD SUCCINATE 100 MG/2 ML VIAL IV SCH ×2 (09:43→21:26)
[2023-07-08] MEDS: PANTOPRAZOLE SODIUM 40 MG VIAL IV SCH ×2 (09:43→21:26)
[2023-07-08] MEDS: MUPIROCIN 2% OINT 22 GM TUBE TP SCH (09:44)
[2023-07-08] MEDS ORDERED: FUROSEMIDE 40 MG/4 ML VIAL IV ONE (18:45)
[2023-07-08 19:54] LABS: *SODIUM RNDM,URINE 10 mmol/L (40-220)
[2023-07-08] MEDS: VANCOMYCIN IV 750 MG in IV DEXTROSE 5% 250 ML IV SCH (20:00)
[2023-07-08] MEDS ORDERED: MAGNESIUM SULFATE/D5W 100 ML IV SCH (23:15)
[2023-07-09] VITALS (81 sets, daily range): BP systolic 73–160; BP diastolic 45–110; TEMP 95–99.2; O2SAT 90–99
[2023-07-09] MEDS ORDERED: PHENYLEPHRINE 10 MG/1 ML VIAL ONE (02:40)
[2023-07-09] MEDS ORDERED: VASOPRESSIN 20 UNIT/ML VIAL ONE (04:58)
[2023-07-09] MEDS: MINERAL OIL/PETROLAT OPHT OINT 3.5 GM TUBE EACHEYE SCH (05:29)
[2023-07-09] MEDS: LEVOTHYROXINE SODIUM 25 MCG TABLET PO SCH (07:00)
[2023-07-09] MEDS: NOREPINEPHRINE BITARTRATE 32 MG in IV NORMAL SALINE 218 ML IV PRN ×2 (08:39→18:33)
[2023-07-09] MEDS: MULTIVITAMINS,THERAPEUTIC TABLET GT SCH (09:00)
[2023-07-09 09:09] LABS: EOSINOPHILS % (AUTO) 0.1 % (0.0-7.0); HEMATOCRIT 24.4 % (31.2-41.9); HEMOGLOBIN 7.9 g/dL (10.9-14.3); LYMPHOCYTES # (AUTO) 2.3 K/uL (0.8-4.8); LYMPHOCYTES % (AUTO) 12.6 % (20.5-51.5); MEAN CORPUSCULAR HEMOGLOBIN 25.3 uug (24.7-32.8); MEAN CORPUSCULAR HGB CONC 32 g/dL (32.3-35.6); MEAN CORPUSCULAR VOLUME 78.8 fL (75.5-95.3); MONOCYTES # (AUTO) 1.1 K/uL (0.1-1.30); NEUTROPHILS # (AUTO) 14.9 K/uL (1.8-8.9); NEUTROPHILS % (AUTO) 81.3 % (38.5-71.5); PLATELET COUNT (AUTO) 61 K/uL (179-408); RED CELL DISTRIBUTION WIDTH 15.1 % (12.3-17.7); WHITE BLOOD COUNT (AUTO) 18.3 K/uL (3.8-11.8)
[2023-07-09 09:20] LABS: CALCIUM 7.6 mg/dL (8.5-10.1); CREATININE 1.6 mg/dL (0.6-1.3); POTASSIUM 3.6 mmol/L (3.5-5.1)
[2023-07-09 09:22] LABS: DIFFERENTIAL COMMENT 1
[2023-07-09 09:25] LABS: BILIRUBIN,TOTAL 1.3 mg/dL (0.2-1.0); TOTAL PROTEIN, SERUM 3.9 g/dL (6.4-8.2)
[2023-07-09 09:33] LABS: ALBUMIN 1.4 g/dL (3.4-5.0)
[2023-07-09] MEDS ORDERED: DOBUTamine IV 250 ML IV PRN ×2 (09:45→10:00)
[2023-07-09] MEDS: MEROPENEM 1 G in IV NORMAL SALINE 100 ML IV SCH ×2 (10:51→21:53)
[2023-07-09] MEDS: PANTOPRAZOLE SODIUM 40 MG VIAL IV SCH ×2 (11:16→21:52)
[2023-07-09] MEDS: HYDROCORTISONE SOD SUCCINATE 100 MG/2 ML VIAL IV SCH ×2 (11:17→21:52)
[2023-07-09] MEDS: FUROSEMIDE 40 MG/4 ML VIAL IV SCH ×2 (11:17→21:52)
[2023-07-09 11:29] LABS: BAND % (MANUAL) 17 % (0-10); NEUTROPHILS % (MANUAL) 61 % (42-75)
[2023-07-09 11:30] LABS: ANISOCYTOSIS 2+; HYPOCHROMASIA 1+; LYMPHOCYTES % (MANUAL) 10 % (20-40); MONOCYTES % (MANUAL) 9 % (2-10); PLATELET ESTIMATE DECREASED; REACTIVE LYMPHOCYTES 3 % (0-0)
[2023-07-09 11:31] LABS: TARGET CELLS 2+
[2023-07-09] MEDS: MUPIROCIN 2% OINT 22 GM TUBE TP SCH (11:51)
[2023-07-09] MEDS: ALBUMIN HUMAN 25% 100 ML IV SCH ×3 (11:53→21:59)
[2023-07-09] MEDS: POLYVINYL ALCOHOL OPHT DROPS 15 ML BOTTLE EACHEYE SCH (21:53)
[2023-07-10] VITALS (51 sets, daily range): BP systolic 70–117; BP diastolic 40–89; TEMP 92.4–96; O2SAT 90–99
[2023-07-10 05:55] LABS: BASOPHILS % (AUTO) 0.2 % (0.0-2.0); EOSINOPHILS # (AUTO) 0.2 K/uL (0.0-0.7); MEAN CORPUSCULAR HEMOGLOBIN 25.6 uug (24.7-32.8); MEAN CORPUSCULAR HGB CONC 33 g/dL (32.3-35.6); MEAN CORPUSCULAR VOLUME 78.6 fL (75.5-95.3); MONOCYTES % (AUTO) 0.4 % (0.0-11.0); NEUTROPHILS # (AUTO) 7.3 K/uL (1.8-8.9); NEUTROPHILS % (AUTO) 85.4 % (38.5-71.5); RED CELL DISTRIBUTION WIDTH 15.4 % (12.3-17.7); WHITE BLOOD COUNT (AUTO) 8.5 K/uL (3.8-11.8)
[2023-07-10] MEDS: ALBUMIN HUMAN 25% 100 ML IV SCH (06:12)
[2023-07-10] MEDS: POLYVINYL ALCOHOL OPHT DROPS 15 ML BOTTLE EACHEYE SCH (06:13)
[2023-07-10] MEDS: LEVOTHYROXINE SODIUM 25 MCG TABLET PO SCH (06:13)
[2023-07-10 06:54] LABS: CALCIUM 8.4 mg/dL (8.5-10.1); CREATININE 1.7 mg/dL (0.6-1.3); MAGNESIUM 2.3 mg/dL (1.8-2.4); PHOSPHOROUS 3.5 mg/dL (2.5-4.9); POTASSIUM 3.3 mmol/L (3.5-5.1)
[2023-07-10 07:23] LABS: DIFFERENTIAL COMMENT 1; HEMATOCRIT 18.3 % (31.2-41.9); RED BLOOD CELL COUNT(AUTO) 2.33 MIL/uL (3.63-4.92)
[2023-07-10 08:12] LABS: PLATELET COUNT (AUTO) 46 K/uL (179-408)
[2023-07-10] MEDS ORDERED: PANTOPRAZOLE SODIUM 40 MG VIAL ONE (08:40)
[2023-07-10] MEDS: FUROSEMIDE 40 MG/4 ML VIAL IV SCH (08:45)
[2023-07-10] MEDS: MULTIVITAMINS,THERAPEUTIC TABLET GT SCH (08:45)
[2023-07-10] MEDS: HYDROCORTISONE SOD SUCCINATE 100 MG/2 ML VIAL IV SCH (08:45)
[2023-07-10] MEDS: MUPIROCIN 2% OINT 22 GM TUBE TP SCH (08:48)
[2023-07-10] MEDS: PANTOPRAZOLE SODIUM 40 MG VIAL IV SCH (08:49)
[2023-07-10] MEDS: MEROPENEM 1 G in IV NORMAL SALINE 100 ML IV SCH (09:38)
[2023-07-10] MEDS ORDERED: POTASSIUM CHLORIDE 50 ML IV SCH (12:00)
[2023-07-10] MEDS ORDERED: LORAZEPAM 2 MG/1 ML VIAL IV PRN (12:15)
[2023-07-10] MEDS ORDERED: MORPHINE SULFATE 2 MG/1 ML DISP.SYRIN IV PRN (12:15)
[2023-07-10] MEDS: MORPHINE SULFATE 2 MG/1 ML DISP.SYRIN IV PRN (12:49)
[2023-07-10 15:23] LABS: BAND % (MANUAL) 35 % (0-10); LYMPHOCYTES % (MANUAL) 11 % (20-40); METAMYELOCYTES % 7 % (0-1); MONOCYTES % (MANUAL) 2 % (2-10); MYELOCYTES % 2 % (0-0); NEUTROPHILS % (MANUAL) 43 % (42-75); PLATELET ESTIMATE DECREASED
[2023-07-10 15:24] LABS: ANISOCYTOSIS 2+; HYPOCHROMASIA 3+; TARGET CELLS MODERATE
[2023-07-10] MEDS ORDERED: MEROPENEM 500 MG in IV NORMAL SALINE 50 ML IV SCH (22:00)
== END 2023-07-10 13:45 | DRG 871 ==
LOC: ER 18:45 → MEDSURG3 22:13 → CCU 07-04 06:50 → MEDSURG3 07-10 13:31
PROVIDERS: ADMIT Nurse Practitioner Acute Care; ATTEND Nurse Practitioner Acute Care
PROC: 05HY33Z Insertion of Infusion Device into Upper Vein, Percutaneous Approach (ICD-10-PCS; 2023-07-03)
PROC: 02HV33Z Insertion of Infusion Device into Superior Vena Cava, Percutaneous Approach (ICD-10-PCS; 2023-07-04)
PROC: 0HDLXZZ Extraction of Left Lower Leg Skin, External Approach (ICD-10-PCS; principal; 2023-07-06)
PROC: 0HDKXZZ Extraction of Right Lower Leg Skin, External Approach (ICD-10-PCS; 2023-07-06)
DX: A41.9 Sepsis, unspecified organism (principal); E43 Unspecified severe protein-calorie malnutrition; R65.21 Severe sepsis with septic shock; N39.0 Urinary tract infection, site not specified; E87.1 Hypo-osmolality and hyponatremia; Z68.1 Body mass index [BMI] 19.9 or less, adult; L03.312 Cellulitis of back [any part except buttock and flank]; L51.2 Toxic epidermal necrolysis [Lyell]; E87.20 Acidosis, unspecified; E44.0 Moderate protein-calorie malnutrition; L97.928 Non-pressure chronic ulcer of unspecified part of left lower leg with other specified severity; L97.918 Non-pressure chronic ulcer of unspecified part of right lower leg with other specified severity; N17.9 Acute kidney failure, unspecified; J81.1 Chronic pulmonary edema; R62.7 Adult failure to thrive; Z66 Do not resuscitate; Z51.5 Encounter for palliative care; F10.10 Alcohol abuse, uncomplicated; M24.572 Contracture, left ankle; M24.571 Contracture, right ankle; Z86.73 Personal history of transient ischemic attack (TIA), and cerebral infarction without residual deficits; G89.4 Chronic pain syndrome; E83.51 Hypocalcemia; E86.0 Dehydration; E83.42 Hypomagnesemia; E86.1 Hypovolemia; Z74.01 Bed confinement status; D36.7 Benign neoplasm of other specified sites; R60.0 Localized edema; M20.42 Other hammer toe(s) (acquired), left foot; M20.41 Other hammer toe(s) (acquired), right foot; I48.0 Paroxysmal atrial fibrillation; E88.09 Other disorders of plasma-protein metabolism, not elsewhere classified; Y92.89 Other specified places as the place of occurrence of the external cause; E03.9 Hypothyroidism, unspecified; D64.9 Anemia, unspecified; F41.9 Anxiety disorder, unspecified; F32.A Depression, unspecified; I10 Essential (primary) hypertension; I25.5 Ischemic cardiomyopathy; S41.112A Laceration without foreign body of left upper arm, initial encounter; S41.111A Laceration without foreign body of right upper arm, initial encounter; X58.XXXA Exposure to other specified factors, initial encounter
CPT/HCPCS: 36415; 36569; 36600; 70030-TC; 71045; 76705; 82533; 82803; 83605; 83735; 84100; 84300; 84443; 84480; 84484; 84550; 85025; 86850; 86900; 86901; 87040; 93005; 93307; A4606; A4663; A6209; A6213; C1758; C9113; G0378; J0282; J0696; J1720; J1940; J2185; J2270; J2405; J3370; J3475; J3480; J3490; J7040; J7050; P9047